=== PATIENT | female | born 1985 | race Caucasian/White ===

== ENCOUNTER 2022-01-08 20:55 | Inpatient (IN) | payer OTHER ==
[2022-01-08] MEDS ORDERED: ACETAMINOPHEN TAB 325 MG TAB PO PRN (21:57)
[2022-01-08] MEDS ORDERED: NALOXONE 0.4 MG/ML 1 ML VIAL IV PRN (21:57)
[2022-01-08] MEDS: DIVALPROEX ER 500 MG TAB.ER.24H PO SCH ×2 (22:23→23:37)
[2022-01-08] MEDS: cloZAPine 100 MG TAB PO SCH ×2 (22:23→23:37)
[2022-01-08] MEDS: SODIUM CHLORIDE 0.9% 1,000 ML IV SCH (22:23)
[2022-01-08 22:48] LABS: Basophils % (A) 0 %; Eosinophils % (A) 1 %; HCT 43.8 % (34.0-46.0); HGB 14.2 gm/dL (11.4-16.0); Lymphocytes # (A) 1.4 k/uL (1.0-4.8); Lymphocytes % (A) 16 %; MCH 32.1 pg (25.0-35.0); MCHC 32.5 g/dL (31.0-37.0); Mean Platelet Volume 7.5; Monocytes # (A) 0.6 k/uL (0-1.0); Monocytes % (A) 7 %; Neutrophils # (A) 6.8 k/uL (1.3-7.7); Neutrophils % (A) 75 %; Platelet Count 231 k/uL (150-450); RBC 4.43 m/uL (3.80-5.40); RDW 11.5 % (11.5-15.5)
[2022-01-08 22:58] LABS: ALT 17 U/L (4-34); AST 15 U/L (14-36); African American GFR (CKD) >90 (>60 ml/min/1.73 sqM); Albumin 4.1 g/dL (3.5-5.0); Alkaline Phosphatase 65 U/L (38-126); Anion Gap 7 mmol/L; Blood Urea Nitrogen 11 mg/dL (7-17); Calcium 8.9 mg/dL (8.4-10.2); Carbon Dioxide 27 mmol/L (22-30); Chloride 106 mmol/L (98-107); Glucose 117 mg/dL (74-99); Magnesium 2.2 mg/dL (1.6-2.3); Non-African American GFR(CKD) >90 (>60 ml/min/1.73 sqM); Potassium 4.4 mmol/L (3.5-5.1); Sodium 140 mmol/L (137-145); Total Bilirubin 0.3 mg/dL (0.2-1.3); Total Protein 6.8 g/dL (6.3-8.2)
[2022-01-08] MEDS: LORazepam 2 MG/ML INJ IV PRN (23:50)
[2022-01-09] MEDS ORDERED: chlorproMAZINE 25 MG TAB PO PRN (01:47)
[2022-01-09] MEDS: chlorproMAZINE 25 MG/ML 2 ML AMP IM PRN ×2 (02:03→08:42)
--- NOTE | 2022-01-09 02:58 | P.HPIM ---
History of Present Illness H&P Date: 01/08/22 Chief Complaint: Seizure 36-year-old female with no significant past medical history Patient presented to the hospital about 3 weeks ago has been admitted to the mental health unit for bizarre behavior and acute psychosis. Patient unable to provide any meaningful history she has very short attention span she would make eye contact and answers one question and then starts hallucinating and talked about random subjects other times she would not answer and just stares in the blank. History was obtained by reviewing medical records It was assumed that the patient is under a lot of social stress due to family commitments. 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 During her stay at the mental health unit looks like he was very difficult to get her symptoms under control she continued to have bizarre behavior with episodes of acute psychosis despite attempting different mood stabilizers and other psych medications with gradually increasing dosing under psychiatrist's supervision with not much improvement in her symptoms. About a week ago patient sustained a fall on the mental health unit where apparently she had the syncopal episodes after she got up and was asking for some medications she fell and hurt her head resulted in an open wound in the back of her head at that time she was attended to the wound was sutured CAT scan of the head showed no acute pathology. Patient initial blood work showed negative drug screen and overall blood work was unremarkable, syphilis screening, and a all negative Today suddenly she starts having seizure was witnessed by staff members and the mental health unit after which her mentation was foggy and due to her prolonged stay at the mental health unit without improvements unable to control her bizarre behavior on top of that now having an episode of seizure patient was sent to the medical unit for close monitoring and further workup to rule out any underlying pathology Another stat CAT scan of the head was performed showed no acute pathology patient currently is back to her baseline mental status Review of Systems ROS unobtainable: due to mental status Past Medical History Past Medical History: No Reported History History of Any Multi-Drug Resistant Organisms: None Reported Past Surgical History: Section Additional Psychological History / Comment(s): PT ADMITTED FROM MENTAL HEALTH WAS THERE FOR PSYCHOTIC EPISODES Smoking Status: Current every day smoker Past Alcohol Use History: None Reported Past Drug Use History: None Reported - Past Family History Mother History Unknown: Yes Medications and Allergies Home Medications Medication Instructions Recorded Confirmed Type Divalproex [Depakote] 500 mg PO HS 30 Days tablet 12/22/21 01/08/22 Rx QUEtiapine [SEROquel] 300 mg PO HS 30 Days tab 12/22/21 01/08/22 Rx Allergies Allergy/AdvReac Type Severity Reaction Status Date / Time amoxicillin Allergy Rash/Hives Verified 12/18/21 18:43 erythromycin base Allergy Rash/Hives Verified 12/18/21 18:43 Penicillins Allergy Rash/Hives Verified 12/18/21 18:43 raspberry Allergy Swelling Verified 12/23/21 12:58 red dye Allergy Swelling Verified 12/23/21 12:58 strawberry Allergy Swelling Verified 12/23/21 12:58 Physical Exam Vitals: Vital Signs Temp Resp BP Pulse Ox 01/09/22 00:00 98.1 F 14 91/61 93 L Intake and Output 01/08/22 01/08/22 01/09/22 14:59 22:59 06:59 Other: # Voids 1 Weight 91 kg Constitutional: No acute distress, cooperative, bizarre behavior Eyes: Anicteric sclerae, moist conjunctiva, Pupils equal round reactive to light ENMT: NC/occipital wound looks dry and intact Oropharynx clear, no erythema, or exudates Neck: Supple, FROM, no masses, or JVD No carotid bruits No thyromegaly Lungs: Clear to auscultation Clear to percussion Normal respiratory effort, no accessory muscle use Cardiovascular: Heart regular in rate and rhythm, No murmurs, gallops, or rubs No peripheral edema Abdominal: Soft Nontender, no guarding, rebound or rigidity Abdomen moving with respiration Normoactive bowel sounds No hepatomegaly, No splenomegaly No palpable mass No abdominal wall hernia noted Skin: Normal temperature, tone, texture, turgor No induration No subcutaneous nodules No rash, lesions No ulcers Extremities: No digital cyanosis No clubbing Pedal pulses intact and symmetrical Radial pulses intact and symmetrical No calf tenderness Psychiatric: Alert and oriented to person, place Bizarre behavior Neuro Muscles Strength 5/5 in all 4 extremities Sensation to light touch grossly present throughout Cranial nerves II-XII grossly intact No focal sensory deficits Lymphatics: no palpable cervical or supraclavicular , or inguinal lymph nodes Results CBC & Chem 7: 01/08/22 22:29 01/08/22 22:29 Labs: Abnormal Lab Results - Last 24 Hours (Table) 01/08/22 Range/Units 22:29 Glucose 117 H (74-99) mg/dL Thrombosis Risk Factor Assmnt - Choose All That Apply Each Factor Represents 1 point: Obesity (BMI >25) Other Risk Factors: No Other congenital or acquired thrombophilia - If yes, enter type in comment: No Thrombosis Risk Factor Assessment Total Risk Factor Score: 1 Thrombosis Risk Factor Assessment Level: Low Risk Assessment and Plan Assessment: Seizure episode Acute psychosis and bizarre behavior Acute metabolic encephalopathy Supportive care Computed tomography scan of the brain no acute pathology Check EEG Seizure precautions Fall precautions One-on-one sitter for safety Psych evaluation Neuro evaluation Follow-up electrolytes repeat blood work in the morning ABG showed metabolic acidosis IV fluid hydration with normal saline Resume psych medication stabilizers When necessary chlorpromazine for acute psychosis DVT prophylaxis Lovenox Full code Anticipated length of stay less than 2 midnights
[2022-01-09] MEDS: LORazepam 2 MG/ML INJ IV PRN (07:54)
[2022-01-09] MEDS: ENOXAPARIN 40 MG/0.4 ML SYRINGE SQ SCH (07:54)
[2022-01-09] MEDS ORDERED: chlorproMAZINE 25 MG/ML 2 ML AMP IM STA (10:17)
[2022-01-09] MEDS ORDERED: LORazepam 2 MG/ML INJ IV PRN (10:18)
[2022-01-09] MEDS ORDERED: chlorproMAZINE 25 MG/ML 2 ML AMP IM ONE ×2 (12:30→18:00)
--- NOTE | 2022-01-09 14:05 | P.CN ---
Psychiatric Consult - . Consult date: 01/09/22 Consult:: 01/09/22 14:04 IDENTIFYING DATA: This patient is a single, employed, 36-year-old female who initially presented to the psychiatric unit with acute psychosis and is now court ordered for mental health treatment. The patient experienced a seizure on the psychiatric unit and was therefore transferred onto the medical floor. HISTORY OF PRESENT ILLNESS: The patient presented to the hospital initially on 0 12/19/2021 with new onset psychotic symptoms a few weeks prior to her admission to the hospital. The patient has had no significant psychiatric history or history of drug abuse. Furthermore, the patient had no significant family psychiatric history. The initial diagnosis was acute psychotic episode, likely precipitated by ongoing life stressors. However during the hospitalization, the patient displayed no significant improvement and in fact appeared to have worsening disorganization as the hospitalization progressed. The patient has been trialed on Risperdal and Prolixin however displayed no significant improvement. During the course of the hospitalization, it was found that benzodiazepines appear to have a paradoxical reaction for this patient. She did require restraints and had intermittent episodes of agitation while on the psychiatric floor. The patient displayed significant symptoms of psychosis including gross disorganization, visual hallucinations, auditory hallucinations, and delusional thoughts. Despite all this, the patient was alert and oriented to person, place, and time. On 01/08/2022, staff was called to the patient's room around 8 PM. The patient was found to be hyperventilating and unresponsive. She was not responding to her name or sternal rub. The team was called and a crash cart was brought to the room. The patient began having a seizure and was noted to have significant muscle rigidity. The patient was therefore transferred to the medical floor. Upon evaluation on the medical floor, the patient continues to be grossly disorganized. Present at the patient's bedside are her sister Moriah and her mother Paulina. Collateral information provided by her family revealed no significant history aside from possible use of nitrous oxide at her work place. They continued to confirm that there has been no significant drug history or psychiatric history for this patient. PAST PSYCHIATRIC HISTORY: Patient has no psychiatric history prior to this admission. The patient was not on any psychotropic medications in the past. While on the psychiatric unit, she was trialed with Risperdal and Prolixin however had no improvement. She was also placed on Depakote for mood stabilization. The patient was last placed on Clozaril. Prior to this psychiatric admission, the patient has had no psychiatric hospitalizations. No previous attempts at suicide. PAST MEDICAL HISTORY: Past Medical History: No Reported History History of Any Multi-Drug Resistant Organisms: None Reported Past Surgical History: Section Additional Psychological History / Comment(s): PT ADMITTED FROM MENTAL HEALTH WAS THERE FOR PSYCHOTIC EPISODES Smoking Status: Current every day smoker Past Alcohol Use History: None Reported Past Drug Use History: None Reported ALLERGIES: Amoxicillin, erythromycin, penicillin, red dye, strawberry, raspberry CHEMICAL DEPENDENCY HISTORY: The patient's family reports that the patient would engage in alcohol use and would smoke a pack to 1 pack per day of tobacco. No reported illicit drug use history. The patient did report while admitted on the psychiatric unit that she would occasionally play around with laughing gas at her workplace. FAMILY PSYCHIATRIC/SUBSTANCE USE HISTORY: No reported family psychiatric history. SOCIAL HISTORY: Patient was born and raised in [place], [place]. The patient is single however has been in relationship with her boyfriend Morales for the past 2 years. She has 2 daughters ages 12 and 6 years old. 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 No criminal history of service. MENTAL STATUS EXAM: General Appearance: Currently, the patient appears to be obtunded and disheveled. Behavior: Patient is lying down in bed with elevated psychomotor activity and restless movements. Speech: Patient's speech is nonspontaneous, nonsensical, dysarthric. Mood/Affect: Patient mood cannot be assessed. Affect appears to be somnolent. Suicidality/Homicidality: Unable to assess. Perceptions: Unable to assess. Though content/process: Patient appears to be grossly disorganized. Memory and concentration: Unable to assess at this time. Judgment and insight: Poor Vital Signs Temp 99 F 01/09/22 12:00 Pulse 120 H 01/09/22 12:00 Resp 18 01/09/22 12:00 BP 112/75 01/09/22 12:00 Pulse Ox 94 L 01/09/22 12:00 Intake & Output 01/08/22 01/09/22 01/09/22 18:59 06:59 18:59 Output Total 1100 Balance -1100 Weight 91 kg Output: Urine 1100 Straight 1100 Other: Voiding Method Diaper # Voids 1 Laboratory Results WBC 9.0 k/uL (3.8-10.6) 01/08/22: RBC 4.43 m/uL (3.80-5.40) 01/08/22: Hgb 14.2 gm/dL (11.4-16.0) 01/08/22: Hct 43.8 % (34.0-46.0) 01/08/22: MCV 99.0 fL (80.0-100.0) 01/08/22: MCH 32.1 pg (25.0-35.0) 01/08/22: MCHC 32.5 g/dL (31.0-37.0) 01/08/22: RDW 11.5 % (11.5-15.5) 01/08/22: Plt Count 231 k/uL (150-450) 01/08/22: MPV 7.5 01/08/22: Neutrophils % 75 % 01/08/22: Lymphocytes % 16 % 01/08/22: Monocytes % 7 % 01/08/22: Eosinophils % 1 % 01/08/22: Basophils % 0 % 01/08/22: Neutrophils # 6.8 k/uL (1.3-7.7) 01/08/22: Lymphocytes # 1.4 k/uL (1.0-4.8) 01/08/22: Monocytes # 0.6 k/uL (0-1.0) 01/08/22: Eosinophils # 0.0 k/uL (0-0.7) 01/08/22: Basophils # 0.0 k/uL (0-0.2) 01/08/22: Sodium 140 mmol/L (137-145) 01/08/22: Potassium 4.4 mmol/L (3.5-5.1) 01/08/22: Chloride 106 mmol/L (98-107) 01/08/22: Carbon Dioxide 27 mmol/L (22-30) 01/08/22: Anion Gap 7 mmol/L 01/08/22: BUN 11 mg/dL (7-17) 01/08/22: Creatinine 0.67 mg/dL (0.52-1.04) 01/08/22 22: Est GFR (CKD-EPI)AfAm >90 (>60 ml/min/1.73 sqM) 01/08/22 22: Est GFR (CKD-EPI)NonAf >90 (>60 ml/min/1.73 sqM) 01/08/22 22: Glucose 117 mg/dL (74-99) H 01/08/22: Calcium 8.9 mg/dL (8.4-10.2) 01/08/22: Magnesium 2.2 mg/dL (1.6-2.3) 01/08/22: Total Bilirubin 0.3 mg/dL (0.2-1.3) 01/08/22: AST 15 U/L (14-36) 01/08/22: ALT 17 U/L (4-34) 01/08/22: Alkaline Phosphatase 65 U/L (38-126) 01/08/22: Total Protein 6.8 g/dL (6.3-8.2) 01/08/22: Albumin 4.1 g/dL (3.5-5.0) 01/08/22: IMPRESSIONS: Acute psychosis Acute metabolic encephalopathy Nicotine dependence The patient is displaying worsening disorganization and confusion. This is despite the fact that the patient has had no previous psychiatric history and when started on antipsychotics appears to have had worsening psychotic symptoms. Despite her presentation, the patient has been alert and oriented while on the psychiatric unit. She did display significant psychotic symptoms of auditory hallucinations, visual hallucinations, delusional thoughts, and disorganization. Given the sudden and worsening onset of symptoms, there is concern for possible underlying issues aside from psychiatric pathology. MOHAMUD, RPR, TSH, B12, folate, Ammonia were WNL. CT did not show signs of acute pathology. EEG was initially negative. PLAN: -Agree with medical recommendations and plan -Agree with neurology work up -Continue Depakote 2000 mg by mouth at bedtime. -Continue clozapine 100 mg by mouth at bedtime. -Thorazine when necessary for agitation -Psychiatry will continue to follow at this time. 01/09/22 14:05
--- NOTE | 2022-01-09 14:19 | MR ---
EXAMINATION TYPE: MR brain wo con DATE OF EXAM: 01/09/2022 COMPARISON: CT brain from yesterday and last several days. HISTORY: new onset seizures TECHNIQUE: Multiplanar, multisequence imaging of the brain and brainstem is performed without IV cont rast. FINDINGS: Exam is suboptimal due to patient motion, several repeat sequences were performed. Diffusion weighted images demonstrate no evidence of a recent infarct or other diffusion abnormality. There is no extraaxial fluid collection or significant white matter signal abnormality. The ventricu lar system and cisternal spaces are normal in size and appearance. The brain volume is age appropria te. No definitive areas of suspicious increased T2 or FLAIR signal. Midline structures demonstrate normal morphology. The craniocervical junction appears within normal limits. Normal vascular flow voids are present. The visualized sinuses are clear and the globes are i ntact. IMPRESSION: Suboptimal study. No suspicious abnormality clearly seen.
--- NOTE | 2022-01-09 17:56 | P.PN ---
Subjective Progress Note Date: 01/09/22 (delayed charting seen at 1030) Principal diagnosis: seizure Patient is a 36-year-old female with no known past medical history who has been on the mental health unit for bizarre behavior and acute psychosis. She had a prolonged stay in the mental health unit as her psychosis has been very difficult to stabilize. She did have a fall in the mental health unit where she possibly had a syncopal episode after getting some medications. Neurology was consulted on the mental health unit and patient did have an EEG completed on which showed possible medication side effect. On 01/08 was witnessed having a seizure on the mental health unit. She was therefore transitioned to the medical unit. CT of the head was performed which showed no acute pathology. Patient seen and examined at bedside. She is laying in the prone prop position continues to reiterate she is waiting for a doctor, but I am not that doctor. She then does not answer other questions and she is not redirectable. She had just received some Ativan which seemed to make her paradoxically more agitated and then a dose of IM Thorazine which seemed to help. General: non toxic, no distress, appears at stated age Derm: warm, dry Head: atraumatic, normocephalic, symmetric Eyes: Myotic pupils, equal round reactive to light EOMI, no lid lag, anicteric sclera Mouth: no lip lesion, mucus membranes moist Cardiovascular: S1S2 reg, no murmur, positive posterior tibial pulse bilateral, Lungs: CTA bilateral, no rhonchi, no rales , no accessory muscle use Abdominal: Patient will not turn over for me to examine her abdomen Ext: no gross muscle atrophy, no edema, no contractures Neuro: Moving all 4 extremities independently with no acute deficits noted Psych: Awake and alert, oriented to self. Appears anxious and responding to internal stimuli Assessment/plan: Acute seizure Altered mentation-acute psychosis versus encephalopathy -Neurology and psychiatry recs -MRI brain, seizure precautions, continue with depakote -Continue with occupational health and safety officer -Urine drug screen was negative on admission -MOHAMUD negative, Covid test negative -Folate, homocystine, TSH, vitamin B12 all within normal limits Non-anion gap metabolic acidosis -Repeat BMP in a.m. -Anticipate this was due to seizure DVT prophylaxis: Heparin Discussed with:patient, psych Anticipated discharge: undetermined Anticipated discharge place: undetermined A total of 35 minutes was spent on the care of this complex patient more than 50% of the time was spent in counseling and care coordination. Active Medications Acetaminophen (Acetaminophen Tab 325 Mg Tab) 650 mg PO Q6HR PRN PRN Reason: Mild Pain or Fever > 100.5 Chlorpromazine HCl (Chlorpromazine 25 Mg Tab) 50 mg PO QID PRN PRN Reason: Agitation or Acute Psychosis Chlorpromazine HCl (Chlorpromazine 25 Mg/Ml 2 Ml Amp) 25 mg IM Q6HR PRN PRN Reason: Agitation or Acute Psychosis Last Admin: 01/09/22 08:42 Dose: 25 mg Documented by: Chlorpromazine HCl (Chlorpromazine 25 Mg/Ml 2 Ml Amp) 50 mg IM ONCE ONE Stop: 01/09/22 18:01 Last Admin: 01/09/22 16:41 Dose: 50 mg Documented by: Clozapine (Clozapine 100 Mg Tab) 100 mg PO [facility] Stop: 01/14/22 23:00 Last Admin: 01/08/22 23:37 Dose: Not Given Documented by: Diphenhydramine HCl (Diphenhydramine 50 Mg/Ml 1 Ml Vial) 25 mg IVP Q6HR PRN PRN Reason: Agitation Diphenhydramine HCl (Diphenhydramine 50 Mg/Ml 1 Ml Vial) 50 mg IM ONCE ONE Stop: 01/09/22 18:01 Last Admin: 01/09/22 16:41 Dose: 50 mg Documented by: Divalproex Sodium (Divalproex Er 500 Mg Tab.Er.24h) 2,000 mg PO [facility] Last Admin: 01/08/22 23:37 Dose: Not Given Documented by: Enoxaparin Sodium (Enoxaparin 40 Mg/0.4 Ml Syringe) 40 mg SQ DAILY [facility] Last Admin: 01/09/22 07:54 Dose: 40 mg Documented by: Sodium Chloride (Saline 0.9%) 1,000 mls @ 150 mls/hr IV .Q6H40M [facility] Last Admin: 01/08/22 22:23 Dose: 150 mls/hr Documented by: Lorazepam (Lorazepam 2 Mg/Ml Inj) 0.5 mg IV Q6HR PRN PRN Reason: Seizures Naloxone HCl (Naloxone 0.4 Mg/Ml 1 Ml Vial) 0.2 mg IV Q2M PRN PRN Reason: Opioid Reversal Objective - Vital Signs Vital signs: Vital Signs Temp 98.9 F 01/09/22 16:00 Pulse 100 01/09/22 16:00 Resp 18 01/09/22 16:00 BP 137/86 01/09/22 16:00 Pulse Ox 96 01/09/22 16:00 Intake & Output 01/08/22 01/09/22 01/09/22 18:59 06:59 18:59 Output Total 1100 600 Balance -1100 -600 Weight 91 kg Output: Urine 1100 600 Straight 1100 Other: Voiding Method Diaper Indwelling Catheter # Voids 1 2 - Labs CBC & Chem 7: 01/08/22 22:29 01/08/22 22:29 Labs: Abnormal Lab Results - Last 24 Hours (Table) 01/08/22 Range/Units 22:29 Glucose 117 H (74-99) mg/dL
[2022-01-09] MEDS ORDERED: diphenhydrAMINE 50 MG/ML 1 ML VIAL IM ONE (18:00)
[2022-01-09] MEDS: SODIUM CHLORIDE 0.9% 1,000 ML IV SCH ×4 (18:02→23:20)
[2022-01-09] MEDS: DIVALPROEX ER 500 MG TAB.ER.24H PO SCH (20:32)
[2022-01-09] MEDS: cloZAPine 100 MG TAB PO SCH (20:32)
--- NOTE | 2022-01-09 20:45 | EEG ---
ELECTROENCEPHALOGRAM REPORT DATE OF SERVICE: 01/09/2022 PREAMBLE: This is a 36-year-old female with altered mental status. She had a seizure versus syncope. EEG FINDINGS: This is a 21-channel digital EEG recorded with video competent, utilizing 10/20 international system with referential and bipolar montages. The recording consists of somewhat attenuated, low voltage, slow waves, with superimposed significant fast frequency beta activity seen in bihemispheric region. Background does not seem to be reactive to any eye opening or closing. Photic driving response was not seen. Frequent myogenic activity was seen. No focal or generalized epileptiform activity was seen. Different stages of sleep were not seen. IMPRESSION: This is an abnormal EEG due to low amplitude background with the presence of excessive amount of low-voltage fast frequency beta activity. This is suggestive of generalized cerebral dysfunction as can be seen with encephalopathy or related to medication effect. No epileptiform activity was seen. MMODL / IJN: [id number] / [facility]
[2022-01-09] MEDS: diphenhydrAMINE 50 MG/ML 1 ML VIAL IVP PRN (21:23)
[2022-01-10] MEDS: SODIUM CHLORIDE 0.9% 1,000 ML IV SCH ×3 (06:18→21:29)
[2022-01-10] MEDS: diphenhydrAMINE 50 MG/ML 1 ML VIAL IVP PRN ×2 (06:18→14:24)
[2022-01-10] MEDS: ENOXAPARIN 40 MG/0.4 ML SYRINGE SQ SCH (07:56)
[2022-01-10 08:52] LABS: ALT 17 U/L (4-34); AST 30 U/L (14-36); African American GFR (CKD) >90 (>60 ml/min/1.73 sqM); Albumin 3.7 g/dL (3.5-5.0); Alkaline Phosphatase 69 U/L (38-126); Anion Gap 6 mmol/L; Blood Urea Nitrogen 7 mg/dL (7-17); Calcium 8.4 mg/dL (8.4-10.2); Carbon Dioxide 26 mmol/L (22-30); Chloride 111 mmol/L (98-107); Glucose 80 mg/dL (74-99); Non-African American GFR(CKD) >90 (>60 ml/min/1.73 sqM); Phosphorus 3.5 mg/dL (2.5-4.5); Potassium 3.9 mmol/L (3.5-5.1); Sodium 143 mmol/L (137-145); Total Bilirubin 0.4 mg/dL (0.2-1.3); Total Protein 6.3 g/dL (6.3-8.2)
[2022-01-10 08:59] LABS: Basophils % (A) 0 %; Eosinophils # (A) 0.1 k/uL (0-0.7); Eosinophils % (A) 1 %; HGB 13.7 gm/dL (11.4-16.0); Lymphocytes # (A) 1.4 k/uL (1.0-4.8); Lymphocytes % (A) 16 %; MCH 31.9 pg (25.0-35.0); MCHC 31.9 g/dL (31.0-37.0); MCV 100.2 fL (80.0-100.0); Mean Platelet Volume 7.4; Monocytes # (A) 0.6 k/uL (0-1.0); Monocytes % (A) 7 %; Neutrophils # (A) 6.5 k/uL (1.3-7.7); Neutrophils % (A) 75 %; Platelet Count 207 k/uL (150-450); RBC 4.29 m/uL (3.80-5.40); RDW 11.5 % (11.5-15.5); WBC 8.7 k/uL (3.8-10.6)
--- NOTE | 2022-01-10 10:30 | P.CNNES ---
History of Present Illness Consult date: 01/09/22 Requesting physician: Lien Gu Reason for Consult: Seizure History of Present Illness: Patient is a 36-year-old female, known to me from recent admission to the hospital at [facility]. Patient was seen for altered mental status. Please refer to my note from 01/07/2022. Patient had an EEG performed, which showed no epileptiform activity. Patient was just seen yesterday, and it was felt patient has acute psychosis, perhaps catatonia. Patient later had a seizure-like episode as depicted in the nursing note as below. As per the description from note of the nursing staff at [facility]: "This staff was called to the patients room around 1999pm, she was found to be hyperventilating and unresponsive, she is not responding to name, or sternal rub, Instructed staff to call A-team, V/S were taken initial set was 128/73 120- 150 on the machine. pulse ox was 97 percent on room air. She was sat up in the bed with a wedge, crash cart was brought in the room, she continues to hyperventilate and then starts having a seizure, shaking with muscle rigidity, A team arrives, o2 was placed on the patient, Cbg done and was 126, pt. continued to be unresponsive they started and IV line in the right forearm, She was given Narcan was given by A team nurses, see A team documentation.V/S 162/112 pulse 84 at 2015pm, She continues to be unresponsive Dr. Gu pt breathing has stabalized, she is more responsive, they made decision [facility]. V/S 143/87 pulse [address] Rosa was notified and order recieved to transfer to medical floor. Pt is being transferred to [facility], Report called to [facility] on [facility]. Also notified pt's boyfriend Morales of the transfer a release has been filled out for him." Patient's sister and their mother was present today, who provided with additional piece of history. It appears patient has been under a lot of stress lately. About 2 or 3 months ago, patient's daughters were checked out by CPS, and the investigation however turned out fine. There was another incident about 2 weeks ago, when her daughter ran after a dog, fell and there was no one to help her. Patient's older daughter has ADD. Patient gets stressed and worries a lot. Patient is a single mother, has 2 daughters. Patient's boyfriend is an alcoholic. Apparently patient has been drinking with her boyfriend a lot more than usual. About 2 weeks prior to arrival to the hospital, patient has been acting with odd behavior with some mental status change. Patient's sister mentions she herself is going through a divorce, but patient's concerns have been "out of ordinary". About few days prior to admission, patient called her sister asking "Are you ?" "Did they kill you?". She asked "Do they have a gun?". Patient's family have noticed that her eyes looks empty. Patient's family mentioned that she had history of seizure at age 15-16. She had another one in 2005. She was treated with seizure medication for couple years but then stopped taking it. She has been seizure free since then. Review of Systems Patient admits to having no headache. ROS unobtainable: due to mental status Past Medical History Past Medical History: No Reported History History of Any Multi-Drug Resistant Organisms: None Reported Past Surgical History: Section Additional Psychological History / Comment(s): PT ADMITTED FROM MENTAL HEALTH WAS THERE FOR PSYCHOTIC EPISODES Smoking Status: Current every day smoker Past Alcohol Use History: None Reported Past Drug Use History: None Reported - Past Family History Mother History Unknown: Yes Medications and Allergies Home Medications Medication Instructions Recorded Confirmed Type Divalproex [Depakote] 500 mg PO HS 30 Days tablet 12/22/21 01/08/22 Rx QUEtiapine [SEROquel] 300 mg PO HS 30 Days tab 12/22/21 01/08/22 Rx Allergies Allergy/AdvReac Type Severity Reaction Status Date / Time amoxicillin Allergy Rash/Hives Verified 12/18/21 18:43 erythromycin base Allergy Rash/Hives Verified 12/18/21 18:43 Penicillins Allergy Rash/Hives Verified 12/18/21 18:43 raspberry Allergy Swelling Verified 12/23/21 12:58 red dye Allergy Swelling Verified 12/23/21 12:58 strawberry Allergy Swelling Verified 12/23/21 12:58 Physical Examination - Vital Signs Vital Signs: Vital Signs Temp Pulse Resp BP Pulse Ox 01/09/22 07:57 98.9 F 101 H 18 115/79 97 01/09/22 04:00 98.7 F 102 H 18 103/62 94 L 01/09/22 00:00 98.1 F 14 91/61 93 L Intake and Output 01/08/22 01/09/22 01/09/22 22:59 06:59 14:59 Output Total 1100 Balance -1100 Output: Urine 1100 Straight 1100 Other: Voiding Method Diaper # Voids 1 Weight 91 kg Patient is a middle aged female, who appears obviously psychotic, also possibly some encephalopathic. Patient is groggy, keeps her eyes closed. She is mumbling, unintelligible speech. Appears to have some word salad. Attention, concentration is significantly limited and fund of knowledge cannot be assessed due to mental status. When I asked about the current president, patient said something about "school". Patient states is the month is the eighth. And the year is "1999". On cranial examination, pupils are equal, round and reacting to light, visual mondragon could not be tested. Her extraocular muscles are intact. No nystagmus in the primary gaze. Face is symmetric, tongue protrudes to the midline. Lower cranial nerves could not be tested due to mental status On muscle strength testing, her associate pathologist appears normal, biceps triceps and deltoid are normal. She moves her both legs equally. No pronator drift. Deep tendon reflexes are 1+ in the upper limbs, 2+ at the knees, 2 ankles and plantars downgoing bilaterally. No clonus. Sensory to touch could not be tested. She does move arms and legs equally. Cerebellar function cannot be tested. Tone and bulk of muscles normal. Gait not checked. On general examination, there is no carotid bruit or murmur, S1-S2 audible. Abdomen is soft nontender, no organomegaly, bowel sounds present . Chest is c lear to auscultation . Peripheral pulses are present. No edema. Results - Laboratory Findings CBC and BMP: 01/10/22 08:20 01/10/22 08:20 Abnormal Lab Findings: Abnormal Labs 01/08/22 22:29 Glucose 117 H Assessment and Plan Assessment: * Altered mental status, probably due to acute psychosis. Rule out encephalitis. * Recent syncopal spell (from hyperventilation) versus seizure. * Reported history of seizure disorder, in remission since 2005, not on any antiepileptic medication. Plan: * Repeat EEG was performed today. It revealed low amplitude background with presence of excessive amount of low voltage fast frequency beta activity. This is suggestive of generalized cerebral dysfunction as can be seen with encephalopathy or related to medication effect. No epileptiform activity was seen. * MRI of the brain without contrast was suboptimal study. No suspicious abnormality clearly seen. I personally reviewed MRI of the brain and agree with the finding. No abnormality noted in the hippocampus. * Patient had normal TSH, ammonia, B12 409, methylmalonic acid 0.21, folate 12.8. Homocystine 6.51. MOHAMUD, RPR negative. * We will perform lumbar puncture to rule out encephalitis. Anesthesia consulted. * Patient has remote history of seizure. She has two EEGs performed recently, none of them showed any epileptiform activity. Patient currently on Depakote 2000 mg at bedtime, which will control seizures. * Psychiatry also on board. * Check creatine kinase * Neurology will follow. Discussed with patient's family in detail. Thank you for the consult.
--- NOTE | 2022-01-10 18:16 | P.PN ---
Subjective Progress Note Date: 01/10/22 (delayed charting seen at 0955) Principal diagnosis: seizure Patient is a 36-year-old female with no known past medical history who has been on the mental health unit for bizarre behavior and acute psychosis. She had a prolonged stay in the mental health unit as her psychosis has been very difficult to stabilize. She did have a fall in the mental health unit where she possibly had a syncopal episode after getting some medications. Neurology was consulted on the mental health unit and patient did have an EEG completed on which showed possible medication side effect. On 01/08 was witnessed having a seizure on the mental health unit. She was therefore transitioned to the medical unit. CT of the head was performed which showed no acute pathology. MRI without significant abnormality. EEG without epileptiform activity. Patient seen and examined at bedside. She is lethargic and opens eyes to sternal rub but does not answer questions or follow commands. Per nursing has been lethargic now but did require benadryl for agitation overnight. General: non toxic, restless, appears at stated age Derm: warm, diaphoretic Head: atraumatic, normocephalic, symmetric Eyes: Myotic pupils, equal round reactive to light EOMI, no lid lag, anicteric sclera Mouth: no lip lesion, mucus membranes moist Cardiovascular: S1S2 tachycardiac, no murmur, positive posterior tibial pulse bilateral, Lungs: CTA bilateral, no rhonchi, no rales , no accessory muscle use Abdominal: sort, NTTP, no organomegally appreciated Ext: no gross muscle atrophy, no edema, no contractures Neuro: Moving all 4 extremities independently with no acute deficits noted, in rolling of b/l LE Psych: lethargic but awake to sternal rub, does not answer questions Assessment/plan: Acute seizure Altered mentation-acute psychosis versus encephalopathy -Neurology and psychiatry recs anesthesia consulted for LP -MRI brain without acute pathology, seizure precautions, continue with depakote -Continue with mines safety engineer -Urine drug screen was negative on admission -MOHAMUD negative, Covid test negative, VDRL negative -Folate, homocystine, TSH, vitamin B12 all within normal limits Non-anion gap metabolic acidosis -Repeat BMP in a.m. -Anticipate this was due to seizure DVT prophylaxis: Heparin Discussed with:patient, psych Anticipated discharge: undetermined Anticipated discharge place: undetermined A total of 35 minutes was spent on the care of this complex patient more than 50% of the time was spent in counseling and care coordination. Active Medications Generic Name Dose Route Start Last Admin Trade Name Freq PRN Reason Stop Dose Admin Acetaminophen 650 mg 01/08/22 21:57 Acetaminophen Tab 325 Mg Tab PO Q6HR PRN Mild Pain or Fever > 100.5 Chlorpromazine HCl 50 mg 01/09/22 01:47 01/09/22 23:38 Chlorpromazine 25 Mg Tab PO 50 mg QID PRN Administration Agitation or Acute Psychosis Chlorpromazine HCl 25 mg 01/09/22 01:47 01/09/22 08:42 Chlorpromazine 25 Mg/Ml 2 Ml Amp IM 25 mg Q6HR PRN Administration Agitation or Acute Psychosis Clozapine 100 mg 01/08/22 22:00 01/09/22 20:32 Clozapine 100 Mg Tab PO 01/14/22 23:00 100 mg HS SABRINA Administration Diphenhydramine HCl 25 mg 01/09/22 15:24 01/10/22 14:24 Diphenhydramine 50 Mg/Ml 1 Ml Vial IVP 25 mg Q6HR PRN Administration Agitation Divalproex Sodium 2,000 mg 01/08/22 22:00 01/09/22 20:32 Divalproex Er 500 Mg Tab.Er.24h PO 2,000 mg HS SABRINA Administration Enoxaparin Sodium 40 mg 01/09/22 09:00 01/10/22 07:56 Enoxaparin 40 Mg/0.4 Ml Syringe SQ 40 mg DAILY SABRINA Administration Sodium Chloride 1,000 mls @ 150 mls/hr 01/08/22 22:00 01/10/22 12:25 Saline 0.9% IV 150 mls/hr .Q6H40M SABRINA Administration Lorazepam 0.5 mg 01/09/22 10:18 Lorazepam 2 Mg/Ml Inj IV Q6HR PRN Seizures Naloxone HCl 0.2 mg 01/08/22 21:57 Naloxone 0.4 Mg/Ml 1 Ml Vial IV Q2M PRN Opioid Reversal Objective - Vital Signs Vital signs: Vital Signs Temp 98.2 F 01/10/22 15:15 Pulse 119 H 01/10/22 15:15 Resp 22 01/10/22 15:15 BP 117/73 01/10/22 15:15 Pulse Ox 96 01/10/22 15:15 Intake & Output 01/09/22 01/10/22 01/10/22 18:59 06:59 18:59 Intake Total 1800 Output Total 495 078 4910 Balance -600 -900 500 Intake: Intake, IV Titration 1800 Amount Sodium Chloride 0.9% 1, 1800 000 ml @ 150 mls/hr IV . Q6H40M [facility] Rx#:[id number] Output: Urine 702 175 5678 Uretheral (Gavin) 1300 Other: Voiding Method Indwelling Catheter Indwelling Catheter Indwelling Catheter # Voids 2 - Labs CBC & Chem 7: 01/10/22 08:20 01/10/22 08:20 Labs: Abnormal Lab Results - Last 24 Hours (Table) 01/10/22 01/10/22 01/10/22 Range/Units 08:20 08:20 08:20 MCV 100.2 H (80.0-100.0) fL Chloride 111 H (98-107) mmol/L Creatine Kinase 610 H (30-135) U/L
[2022-01-10] MEDS ORDERED: LIDOCAINE 1% INJ 10MG/ML (5 ML VIAL-PF) SQ ONE (20:00)
[2022-01-10] MEDS ORDERED: LIDOCAINE 1% INJ 10MG/ML (10 ML MDV) SQ ONE (20:00)
[2022-01-10] MEDS ORDERED: LIDOCAINE 1% INJ 10MG/ML (20 ML MDV) SQ ONE (20:00)
--- NOTE | 2022-01-10 20:07 | P.PCN ---
Date of Procedure: 01/10/22 Procedure(s) Performed: Preoperative diagnosis: Altered mental status Post operative diagnoses: Altered mental status Procedure= lumbar puncture Anesthesia local infiltration with lidocaine 1% 3 mL. Condition: stable Complication: none. Description of the procedure procedure risk and benefits discussed with the patient's mother , consent signed. Patient placed in sitting position , back prepped with chlorhexidine 3 times been local infiltration of the skin and subcutaneous tissue with lidocaine 1% 2 mL for skin and subcu interstitial frustrations at L4 5 levels then 22-gauge Quincke-type needle advanced slowly at L4- 5 interlaminar space there was positive cerebrospinal fluid which was clear, no heme, no paresthesia ,total of 9 ML of clear cerebrospinal fluid collected in 4 different tubes 2-2-1/2 mL in each, then the needle removed and a Band-Aid applied and patient tolerated the procedure well without any complications.
[2022-01-10 20:48] LABS: Glucose,CSF 41 mg/dL (40-70); Total Protein,CSF 56 mg/dL (12-60)
[2022-01-10 21:18] LABS: ALT 16 U/L (4-34); AST 32 U/L (14-36); African American GFR (CKD) >90 (>60 ml/min/1.73 sqM); Albumin 3.6 g/dL (3.5-5.0); Alkaline Phosphatase 70 U/L (38-126); Anion Gap 8 mmol/L; Blood Urea Nitrogen 10 mg/dL (7-17); Calcium 8.4 mg/dL (8.4-10.2); Carbon Dioxide 22 mmol/L (22-30); Chloride 110 mmol/L (98-107); Glucose 57 mg/dL (74-99); Non-African American GFR(CKD) >90 (>60 ml/min/1.73 sqM); Potassium 4.4 mmol/L (3.5-5.1); Sodium 140 mmol/L (137-145); Total Bilirubin 0.6 mg/dL (0.2-1.3); Total Protein 6.4 g/dL (6.3-8.2)
[2022-01-10] MEDS: DIVALPROEX ER 500 MG TAB.ER.24H PO SCH ×3 (21:30→22:24)
[2022-01-10] MEDS: cloZAPine 100 MG TAB PO SCH (21:30)
[2022-01-10 21:53] LABS: Appearance,CSF Clear; CSF Tube Number 4; Nucleated Cells, CSF 0 u/L (0-5); Red Blood Cell,CSF 0 u/L (0-10)
[2022-01-10] MEDS: VALPROATE SODIUM 750 MG in SODIUM CHLORIDE 0.9% 50 ML IVPB SCH (22:34)
[2022-01-11] MEDS: diphenhydrAMINE 50 MG/ML 1 ML VIAL IVP PRN ×3 (02:31→22:01)
[2022-01-11] MEDS: SODIUM CHLORIDE 0.9% 1,000 ML IV SCH ×4 (05:40→22:05)
[2022-01-11] MEDS: VALPROATE SODIUM 750 MG in SODIUM CHLORIDE 0.9% 50 ML IVPB SCH ×2 (07:25→21:47)
[2022-01-11] MEDS: ENOXAPARIN 40 MG/0.4 ML SYRINGE SQ SCH (07:47)
[2022-01-11 07:48] LABS: Glucose,Whole Blood 81 mg/dL (75-99)
[2022-01-11 09:53] LABS: Basophils % (A) 0 %; Eosinophils % (A) 0 %; HCT 43.2 % (34.0-46.0); HGB 13.6 gm/dL (11.4-16.0); Lymphocytes # (A) 1.7 k/uL (1.0-4.8); Lymphocytes % (A) 19 %; MCH 31.6 pg (25.0-35.0); MCHC 31.4 g/dL (31.0-37.0); MCV 100.5 fL (80.0-100.0); Mean Platelet Volume 7.7; Monocytes # (A) 0.7 k/uL (0-1.0); Monocytes % (A) 8 %; Neutrophils # (A) 6.2 k/uL (1.3-7.7); Neutrophils % (A) 71 %; Platelet Count 198 k/uL (150-450); RDW 11.7 % (11.5-15.5); WBC 8.8 k/uL (3.8-10.6)
[2022-01-11 10:13] LABS: ALT 15 U/L (4-34); AST 29 U/L (14-36); African American GFR (CKD) >90 (>60 ml/min/1.73 sqM); Albumin 3.6 g/dL (3.5-5.0); Alkaline Phosphatase 71 U/L (38-126); Anion Gap 9 mmol/L; Blood Urea Nitrogen 10 mg/dL (7-17); Calcium 8.5 mg/dL (8.4-10.2); Carbon Dioxide 25 mmol/L (22-30); Chloride 106 mmol/L (98-107); Creatine Kinase 430 U/L (30-135); Glucose 58 mg/dL (74-99); Magnesium 1.9 mg/dL (1.6-2.3); Non-African American GFR(CKD) >90 (>60 ml/min/1.73 sqM); Potassium 4.3 mmol/L (3.5-5.1); Sodium 140 mmol/L (137-145); Total Bilirubin 0.6 mg/dL (0.2-1.3); Total Protein 6.3 g/dL (6.3-8.2)
--- NOTE | 2022-01-11 11:26 | P.PN ---
Subjective Progress Note Date: 01/10/22 Patient was seen for a follow-up. Patient continues to be obtaining obviously psychotic. Sometimes she is slightly more awake, answers appropriately, the time she just starts snoring. At that time patient would not respond to deep painful stimuli involving the nailbed pressure on her hand or foot. Sitter was present throughout this encounter. Patient's significant other Mr. Salcedo was present today. I asked him about her history of alcoholism. He mentions that she used to drink quite a bit before but has not been drinking too much since he met her about a year ago in summer 2020. Now she drinks about 6-10 beers or 2-3 glasses of vodka between Wednesday and Wednesday. She does not drink during the weekdays. He does not believe that she drinks too much. No history of drugs, does not smoke weed. Objective - Vital Signs Vital signs: Vital Signs Temp 98.2 F 01/10/22 15:15 Pulse 119 H 01/10/22 15:15 Resp 22 01/10/22 15:15 BP 117/73 01/10/22 15:15 Pulse Ox 96 01/10/22 15:15 Intake & Output 01/09/22 01/10/22 01/10/22 18:59 06:59 18:59 Intake Total 1800 Output Total 657 729 4773 Balance -600 -900 500 Intake: Intake, IV Titration 1800 Amount Sodium Chloride 0.9% 1, 1800 000 ml @ 150 mls/hr IV . Q6H40M [facility] Rx#:[id number] Output: Urine 887 243 0303 Uretheral (Gavin) 1300 Other: Voiding Method Indwelling Catheter Indwelling Catheter Indwelling Catheter # Voids 2 - Exam Patient continues to be somewhat encephalopathic, also psychotic. Patient mumbles, frequently with incomprehensible speech. Sometimes she speaks more clearly. Sometimes she would smile out of context. Neck is supple. Pupils are equal, round and reacting. Gaze is midline. Face is symmetric. Tone is equal bilaterally. Her strength appears equal. Reflexes are 2 in the upper limbs, 2 in the lower limbs, very symmetric and plantars downgoing, with no clonus. - Labs CBC & Chem 7: 01/11/22 08:36 01/11/22 08:36 Labs: Abnormal Lab Results - Last 24 Hours (Table) 01/10/22 01/10/22 01/10/22 Range/Units 08:20 08:20 08:20 MCV 100.2 H (80.0-100.0) fL Chloride 111 H (98-107) mmol/L Creatine Kinase 610 H (30-135) U/L Assessment and Plan Assessment: * Altered mental status, probably due to acute psychosis. Rule out encephalitis. * Recent syncopal spell (from hyperventilation) versus seizure. * Reported history of seizure disorder, in remission since 2005, not on any antiepileptic medication. Plan: * Await lumbar puncture. * Repeat EEG 01/09/2022 revealed low amplitude background with presence of excessive amount of low voltage fast frequency beta activity. This is suggestive of generalized cerebral dysfunction as can be seen with encephalopathy or related to medication effect. No epileptiform activity was seen. * MRI of the brain without contrast was suboptimal study. No suspicious abnormality clearly seen. I personally reviewed MRI of the brain and agree with the finding. No abnormality noted in the hippocampus. * Patient had normal TSH, ammonia, B12 409, methylmalonic acid 0.21, folate 12.8. Homocystine 6.51. MOHAMUD, RPR negative. * Patient has remote history of seizure. She has two EEGs performed recently, n one of them showed any epileptiform activity. Patient currently on Depakote 2000 mg at bedtime, which will control seizures. Patient not taking oral pills. We will switch to Depacon 750 mg IV twice a day. * Psychiatry also on board. * Creatine kinase 610. Temperature is normal. No evidence of NMS. * Discussed with primary physician.
--- NOTE | 2022-01-11 15:44 | P.PN ---
Subjective Progress Note Date: 01/11/22 (delayed charting seen at 0915) Principal diagnosis: seizure Patient is a 36-year-old female with no known past medical history who has been on the mental health unit for bizarre behavior and acute psychosis. She had a prolonged stay in the mental health unit as her psychosis has been very difficult to stabilize. She did have a fall in the mental health unit where she possibly had a syncopal episode after getting some medications. Neurology was consulted on the mental health unit and patient did have an EEG completed on which showed possible medication side effect. On 01/08 was witnessed having a seizure on the mental health unit. She was therefore transitioned to the medical unit. CT of the head was performed which showed no acute pathology. MRI without significant abnormality. EEG without epileptiform activity. Patient seen and examined at bedside. She is more awake and alert today. 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 She d enies any pain. General: non toxic, restless, appears at stated age Derm: warm, diaphoretic Head: atraumatic, normocephalic, symmetric Eyes: Myotic pupils, equal round reactive to light EOMI, no lid lag, anicteric sclera Mouth: no lip lesion, mucus membranes moist Cardiovascular: S1S2 tachycardiac, no murmur, positive posterior tibial pulse bilateral, Lungs: CTA bilateral, no rhonchi, no rales , no accessory muscle use Abdominal: sort, NTTP, no organomegally appreciated Ext: no gross muscle atrophy, no edema, no contractures Neuro: Moving all 4 extremities independently with no acute deficits noted Psych: awake, oriented X 3, flat affect Assessment/plan: Acute seizure Altered mentation-acute psychosis versus encephalopathy -Neurology and psychiatry recs -LP negative for meningitis -MRI brain without acute pathology, seizure precautions, continue with depakote -Continue with environmental health safety engineer -Urine drug screen was negative on admission -MOHAMUD negative, Covid test negative, VDRL negative -Folate, homocystine, TSH, vitamin B12 all within normal limits Non-anion gap metabolic acidosis -Repeat BMP in a.m. -Anticipate this was due to seizure DVT prophylaxis: Heparin Discussed with:patient Anticipated discharge: in AM Anticipated discharge place: [facility] A total of 35 minutes was spent on the care of this complex patient more than 50% of the time was spent in counseling and care coordination. Active Medications Generic Name Dose Route Start Last Admin Trade Name Freq PRN Reason Stop Dose Admin Acetaminophen 650 mg 01/08/22 21:57 Acetaminophen Tab 325 Mg Tab PO Q6HR PRN Mild Pain or Fever > 100.5 Chlorpromazine HCl 50 mg 01/09/22 01:47 01/09/22 23:38 Chlorpromazine 25 Mg Tab PO 50 mg QID PRN Administration Agitation or Acute Psychosis Chlorpromazine HCl 25 mg 01/09/22 01:47 01/09/22 08:42 Chlorpromazine 25 Mg/Ml 2 Ml Amp IM 25 mg Q6HR PRN Administration Agitation or Acute Psychosis Clozapine 100 mg 01/08/22 22:00 01/10/22 21:30 Clozapine 100 Mg Tab PO 01/14/22 23:00 100 mg HS SABRINA Administration Diphenhydramine HCl 25 mg 01/09/22 15:24 01/11/22 02:31 Diphenhydramine 50 Mg/Ml 1 Ml Vial IVP 25 mg Q6HR PRN Administration Agitation Enoxaparin Sodium 40 mg 01/09/22 09:00 01/11/22 07:47 Enoxaparin 40 Mg/0.4 Ml Syringe SQ 40 mg DAILY SABRINA Administration Sodium Chloride 1,000 mls @ 150 mls/hr 01/08/22 22:00 01/11/22 07:26 Saline 0.9% IV 150 mls/hr .Q6H40M SABRINA Administration Valproic Acid 750 mg/ Sodium 57.5 mls @ 50 mls/hr 01/10/22 22:30 01/11/22 07:25 Chloride IVPB 50 mls/hr BID SABRINA Administration Lorazepam 0.5 mg 01/09/22 10:18 Lorazepam 2 Mg/Ml Inj IV Q6HR PRN Seizures Naloxone HCl 0.2 mg 01/08/22 21:57 Naloxone 0.4 Mg/Ml 1 Ml Vial IV Q2M PRN Opioid Reversal Objective - Vital Signs Vital signs: Vital Signs Temp 98.9 F 01/11/22 15:14 Pulse 104 H 01/11/22 15:14 Resp 18 01/11/22 15:14 BP 112/76 01/11/22 15:14 Pulse Ox 96 01/11/22 15:14 Intake & Output 01/10/22 01/11/22 01/11/22 18:59 06:59 18:59 Intake Total 2030 1250 1800 Output Total 1300 1600 825 Balance 730 -350 975 Intake: Intake, IV Titration 1800 1250 1800 Amount Sodium Chloride 0.9% 1, 1800 1200 1800 000 ml @ 150 mls/hr IV . Q6H40M [facility] Rx#:[id number] Valproate Sodium 750 mg 50 In Sodium Chloride 0.9% 50 ml @ 50 mls/hr IVPB BID [facility] Rx#:[id number] Oral 230 Output: Urine 1300 1600 825 Uretheral (Gavin) 1300 825 Other: Voiding Method Indwelling Catheter Indwelling Catheter Indwelling Catheter - Labs CBC & Chem 7: 01/11/22 08:36 01/11/22 08:36 Labs: Abnormal Lab Results - Last 24 Hours (Table) 01/10/22 01/11/22 01/11/22 Range/Units 20:32 08:36 08:36 MCV 100.5 H (80.0-100.0) fL Chloride 110 H (98-107) mmol/L Glucose 57 L 58 L (74-99) mg/dL Creatine Kinase 430 H (30-135) U/L Microbiology - Last 24 Hours (Table) 01/10/22 20:10 CSF Gram Stain - Preliminary Cerebral Spinal Fluid CSF Culture - Preliminary
[2022-01-11] MEDS: cloZAPine 100 MG TAB PO SCH (21:46)
[2022-01-12] MEDS ORDERED: diphenhydrAMINE 50 MG/ML 1 ML VIAL ONE (04:00)
[2022-01-12] MEDS: SODIUM CHLORIDE 0.9% 1,000 ML IV SCH ×3 (06:46→21:24)
--- NOTE | 2022-01-12 09:05 | P.PN ---
Subjective Progress Note Date: 01/11/22 Patient was seen for a follow-up. Per nursing report, she is slightly better. She was more oriented, talking more appropriately. Still becomes somnolent. Patient still mumbles, talks gibberish, out of context. Patient for no reason uttered "Moriah will take you to the back". Patient's mother was also present today. Informed her the results of the lumbar puncture, MRI and the EEG. Sitter was present throughout this encounter. Objective - Vital Signs Vital signs: Vital Signs Temp 98.3 F 01/12/22 04:00 Pulse 100 01/12/22 04:00 Resp 18 01/12/22 04:00 BP 112/79 01/12/22 04:00 Pulse Ox 95 01/12/22 04:00 FiO2 Intake & Output 01/11/22 01/12/22 01/12/22 18:59 06:59 18:59 Intake Total 2120 1250 Output Total 1425 1775 Balance 695 -525 Intake: Intake, IV Titration 1800 1250 Amount Sodium Chloride 0.9% 1, 1800 1200 000 ml @ 150 mls/hr IV . Q6H40M [facility] Rx#:[id number] Valproate Sodium 750 mg 50 In Sodium Chloride 0.9% 50 ml @ 50 mls/hr IVPB BID [facility] Rx#:[id number] Oral 320 Output: Urine 1425 1775 Uretheral (Gavin) 1425 Other: Voiding Method Indwelling Catheter Indwelling Catheter - Exam Patient is slightly more awake, speaking more clearly and legibly. However still continues to mumble and sometimes talks completely out of context. At times talks gibberish. Patient's muscle strength is normal. Cranial nerves are normal. Neck is supple. Pupils are equal, round and reacting. Gaze is midline. Face is symmetric. Tone is equal bilaterally. Her strength appears equal. Reflexes are 2 in the upper limbs, 2 in the lower limbs, very symmetric and plantars downgoing, with no clonus. - Labs CBC & Chem 7: 01/11/22 08:36 01/11/22 08:36 Labs: Abnormal Lab Results - Last 24 Hours (Table) 01/11/22 01/11/22 Range/Units 08:36 08:36 MCV 100.5 H (80.0-100.0) fL Glucose 58 L (74-99) mg/dL Creatine Kinase 430 H (30-135) U/L Microbiology - Last 24 Hours (Table) 01/10/22 20:10 CSF Gram Stain - Preliminary Cerebral Spinal Fluid CSF Culture - Preliminary Assessment and Plan Assessment: * Altered mental status, probably due to acute psychosis. No evidence of enc ephalitis. CSF completely normal. * Recent syncopal spell (from hyperventilation) versus seizure. * Reported history of seizure disorder, in remission since 2005, not on any antiepileptic medication. Plan: * Patient underwent lumbar puncture last night. CSF WBC 0, CSF RBC 0, protein 56, glucose 41. Glucose appears to, but probably was also low in the blood at that time. Cultures negative. Overall CSF is normal. * Repeat EEG 01/09/2022 revealed low amplitude background with presence of excessive amount of low voltage fast frequency beta activity. This is suggestive of generalized cerebral dysfunction as can be seen with encephalopathy or related to medication effect. No epileptiform activity was seen. * MRI of the brain without contrast was suboptimal study. No suspicious abnormality clearly seen. I personally reviewed MRI of the brain and agree with the finding. No abnormality noted in the hippocampus. * Patient had normal TSH, ammonia, B12 409, methylmalonic acid 0.21, folate 12.8. Homocystine 6.51. MOHAMUD negative, RPR negative. * Patient has remote history of seizure. She has two EEGs performed recently, none of them showed any epileptiform activity. Patient currently on Depakote 2000 mg at bedtime, which will control seizures. Patient not taking oral pills. We will switch to Depacon 750 mg IV twice a day. * Psychiatry also on board. * Creatine kinase 610. Temperature is normal. No evidence of NMS. * Discussed with primary physician. * All neurological workup is negative. Neurologically cleared for transfer to psychiatry unit. Please call neurology if any concerns. Dr. Ben Parham will be available for neurology service in the morning.
[2022-01-12] MEDS: ENOXAPARIN 40 MG/0.4 ML SYRINGE SQ SCH (09:06)
[2022-01-12] MEDS: VALPROATE SODIUM 750 MG in SODIUM CHLORIDE 0.9% 50 ML IVPB SCH ×2 (09:07→21:23)
[2022-01-12] MEDS: diphenhydrAMINE 50 MG/ML 1 ML VIAL IVP PRN (12:10)
--- NOTE | 2022-01-12 12:46 | P.PN ---
Progress Note - Text Progress Note Date: 01/12/22 Interval History: Patient was seen resting in bed with her mother and sister at bedside. Currently, the patient is very somnolent however does awaken randomly and yells out loud "Where's Moriah!?" and then quickly goes back to bed. The patient continues to have intermittent episodes of agitation and psychosis while admitted on the medical floor. The patient has been adherent with her medications. MRI, EEG, and diagnosing blood workup so far been negative. EEG likely showing effects of medications. NMDAR IgG is still pending and due in 3- 7 days as per lab. Collateral information was obtained by the patient's family. They report the patient does have a significant history of Covid-19 infection. There has been literature of patients with no significant psychiatric symptoms presenting with severe psychotic symptoms after Covid-19 infections. We discussed the plan to transfer for ECT treatment as she has been treatment resistant to medications. We will continue titration of clozaril. Mental Status Exam: General Appearance: Patient appears to be somnolent, difficult to direct, and intimately cooperative. Obese body habitus. Behavior: Appears to presenting with elevated psychomotor activity and appears to be grossly restless. Eye contact is poor. Speech: Spontaneous, loud at times, nonsensical. Mood/Affect: Mood is "tired." Affect is dysphoric, disorganized, and malaised. Suicidality/Homicidality: Unable to assess Perceptions: Unable to assess Though content/process: Patient appears to be grossly disorganized. He endorses delusional thought content. Memory and concentration: Unable to assess today. However when usually assessed, patient is alert and oriented. Judgment and insight: Very poor. Vital Signs Temp 98.1 F 01/12/22 08:00 Pulse 98 01/12/22 11:52 Resp 18 01/12/22 08:00 BP 109/74 01/12/22 08:00 Pulse Ox 96 01/12/22 08:00 FiO2 Intake & Output 01/11/22 01/12/22 01/12/22 18:59 06:59 18:59 Intake Total 2120 1250 Output Total 1425 1775 650 Balance 695 525 -650 Intake: Intake, IV Titration 1800 1250 Amount Sodium Chloride 0.9% 1, 1800 1200 000 ml @ 150 mls/hr IV . Q6H40M [facility] Rx#:[id number] Valproate Sodium 750 mg 50 In Sodium Chloride 0.9% 50 ml @ 50 mls/hr IVPB BID [facility] Rx#:[id number] Oral 320 Output: Urine 1425 1775 650 Uretheral (Gavin) 1425 Other: Voiding Method Indwelling Catheter Indwelling Catheter Indwelling Catheter Assessment Acute psychosis - given the timeline of symptoms, a diagnosis of schizophrenia cannot be made yet. The patient has had no previous history of osiel or bipolar symptoms and despite presenting with intermittent episodes of agitation and has had no previous history of overt manic symptoms lasting a week. 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 Literature has shown that patients with a history of Covid 19 infection have been displaying new onset psychosis that appears to be very severe and treatment resistant. Likely there, the patient would benefit from ECT as antipsychotic medications have not displayed any significant improvement. We will continue to titrate Clozaril in the meantime. Awaiting NMDAR IgG results. Nicotine dependence Plan: -Patient continues to meet criteria for inpatient psychiatric admission for symptom stabilization and safety. The patient is currently court ordered for ps ychiatric treatment. Recommend that the patient is transferred to a facility that can utilize Electroconvulsive therapy. Plan discussed with the patient's high risk case manager. Personal phone number left with high risk case manager to coordinate care with possible facility that will take the patient for ECT. -Medications: Increase Clozaril to 125 mg by mouth at bedtime for psychosis Continue Depakote 750 mg IV twice a day for mood stabilization/seizure -When necessary Thorazine and Benadryl for agitation/aggression. -Psychiatry will continue to follow.
--- NOTE | 2022-01-12 14:12 | P.PN ---
Subjective Progress Note Date: 01/12/22 (delayed charting seen at 1045) Principal diagnosis: seizure Patient is a 36-year-old female with no known past medical history who has been on the mental health unit for bizarre behavior and acute psychosis. She had a prolonged stay in the mental health unit as her psychosis has been very difficult to stabilize. She did have a fall in the mental health unit where she possibly had a syncopal episode after getting some medications. Neurology was consulted on the mental health unit and patient did have an EEG completed on 51 which showed possible medication side effect. On 01/08 was witnessed having a seizure on the mental health unit. She was therefore transitioned to the medical unit. CT of the head was performed which showed no acute pathology. MRI without significant abnormality. EEG without epileptiform activity. Patient seen and examined at bedside. Mother and sister present at bedside. She is currently sedated after receiving Benadryl this morning. She does wake up and phonate though it is difficult to understand what she is saying. Jeremi arently today she became agitated with a nurse aide and thought she was her daughter. General: non toxic, no distress, appears at stated age Derm: warm, diaphoretic Head: atraumatic, normocephalic, symmetric Eyes: Myotic pupils, equal round reactive to light EOMI, no lid lag, anicteric sclera Mouth: no lip lesion, mucus membranes moist Cardiovascular: S1S2 tachycardiac, no murmur, positive posterior tibial pulse bilateral, Lungs: CTA bilateral, no rhonchi, no rales , no accessory muscle use Abdominal: sort, NTTP, no organomegally appreciated Ext: no gross muscle atrophy, no edema, no contractures Neuro: Moving all 4 extremities independently with no acute deficits noted Psych: Somnolent, opens eyes and attempts to verbalize when stimulated verbally or tactilely. She is not answering questions at this time. Assessment/plan: Acute seizure Acute psychosis -Neurology and psychiatry recs -LP negative for meningitis -MRI brain without acute pathology, seizure precautions, continue with depakote, EEG without epileptiform activity -Continue with product safety compliance leader -Urine drug screen was negative on admission -MOHAMUD negative, Covid test negative, VDRL negative -Folate, homocystine, TSH, vitamin B12 all within normal limits - NDMA receptor testing pending Non-anion gap metabolic acidosis, resolved Medically optimized for discharge, no metabolic/neurologic/medical cause found to account for patients current pyschosis. D/W Dr. Cobb who recommends transfer to a MHU that can accommodate ECT--he will work with social work to arrange this transfer DVT prophylaxis: Heparin Discussed with:patient Anticipated discharge: in AM Anticipated discharge place: MHU A total of 35 minutes was spent on the care of this complex patient more than 50% of the time was spent in counseling and care coordination. Active Medications Generic Name Dose Route Start Last Admin Trade Name Freq PRN Reason Stop Dose Admin Acetaminophen 650 mg 01/08/22 21:57 Acetaminophen Tab 325 Mg Tab PO Q6HR PRN Mild Pain or Fever > 100.5 Chlorpromazine HCl 50 mg 01/09/22 01:47 01/09/22 23:38 Chlorpromazine 25 Mg Tab PO 50 mg QID PRN Administration Agitation or Acute Psychosis Chlorpromazine HCl 25 mg 01/09/22 01:47 01/09/22 08:42 Chlorpromazine 25 Mg/Ml 2 Ml Amp IM 25 mg Q6HR PRN Administration Agitation or Acute Psychosis Clozapine 125 mg 01/12/22 21:00 Clozapine 25 Mg Tab PO 01/14/22 23:00 HS S[facility]INA Diphenhydramine HCl 25 mg 01/09/22 15:24 01/12/22 12:10 Diphenhydramine 50 Mg/Ml 1 Ml Vial IVP 25 mg Q6HR PRN Administration Agitation Enoxaparin Sodium 40 mg 01/09/22 09:00 01/12/22 09:06 Enoxaparin 40 Mg/0.4 Ml Syringe SQ 40 mg DAILY S[facility] Administration Sodium Chloride 1,000 mls @ 150 mls/hr 01/08/22 22:00 01/12/22 09:08 Saline 0.9% IV Not Given .Q6H40M [facility] Valproic Acid 750 mg/ Sodium 57.5 mls @ 50 mls/hr 01/10/22 22:30 01/12/22 09:07 Chloride IVPB 50 mls/hr BID S[facility] Administration Lorazepam 0.5 mg 01/09/22 10:18 Lorazepam 2 Mg/Ml Inj IV Q6HR PRN Seizures Naloxone HCl 0.2 mg 01/08/22 21:57 Naloxone 0.4 Mg/Ml 1 Ml Vial IV Q2M PRN Opioid Reversal Objective - Vital Signs Vital signs: Vital Signs Temp 97.9 F 01/12/22 12:00 Pulse 104 H 01/12/22 12:00 Resp 20 01/12/22 12:00 BP 103/68 01/12/22 12:00 Pulse Ox 97 01/12/22 12:00 FiO2 Intake & Output 01/11/22 01/12/22 01/12/22 18:59 06:59 18:59 Intake Total 2120 1250 Output Total 1425 1775 650 Balance 695 -525 -650 Intake: Intake, IV Titration 1800 1250 Amount Sodium Chloride 0.9% 1, 1800 1200 000 ml @ 150 mls/hr IV . Q6H40M [facility] Rx#:[id number] Valproate Sodium 750 mg 50 In Sodium Chloride 0.9% 50 ml @ 50 mls/hr IVPB BID [facility] Rx#:[id number] Oral 320 Output: Urine 1425 1775 650 Uretheral (Gavin) 1425 Other: Voiding Method Indwelling Catheter Indwelling Catheter Indwelling Catheter - Labs CBC & Chem 7: 01/11/22 08:36 01/11/22 08:36 Labs: Microbiology - Last 24 Hours (Table) 01/10/22 20:10 CSF Gram Stain - Preliminary Cerebral Spinal Fluid CSF Culture - Preliminary
[2022-01-12 14:32] VITALS: BMI 34.4
[2022-01-12] MEDS ORDERED: cloZAPine 25 MG TAB PO SCH (21:00)
[2022-01-13] MEDS: SODIUM CHLORIDE 0.9% 1,000 ML IV SCH ×4 (03:01→22:37)
[2022-01-13] MEDS: diphenhydrAMINE 50 MG/ML 1 ML VIAL IVP PRN ×3 (03:01→22:07)
[2022-01-13] MEDS: VALPROATE SODIUM 750 MG in SODIUM CHLORIDE 0.9% 50 ML IVPB SCH ×2 (08:37→22:07)
[2022-01-13] MEDS: ENOXAPARIN 40 MG/0.4 ML SYRINGE SQ SCH (08:38)
[2022-01-13] MEDS: chlorproMAZINE 25 MG/ML 2 ML AMP IM PRN (08:44)
[2022-01-13 12:49] LABS: IgG - CSF 4.4 mg/dL (0.0 - 3.4); IgG Synthesis Rate 5.82 mg/day (0.00 - 3.00)
--- NOTE | 2022-01-13 13:08 | P.PN ---
Progress Note - Text Progress Note Date: 01/13/22 Interval History: Patient was seen resting in bed with her mother and sitter at bedside. Currently the patient is alert and oriented to person, place, and time. She is currently denying any suicidal or homicidal ideation, intention, and/or plan. She reports no auditory or visual hallucinations. She does not mention any overt psychotic symptoms. She has been adherent with her medications with sedation as a side effect. The patient continues to be somewhat disorganized. She has intermittent episodes of agitation and confusion. Mental Status Exam: General Appearance: Patient appears to be somnolent, but directable and cooperative. Obese body habitus. Behavior: Appears to presenting with elevated psychomotor activity and appears to be grossly restless. Eye contact is poor. Speech: Spontaneous, slurred, low in volume. Mood/Affect: Mood is "okay." Affect is somnolent. Suicidality/Homicidality: Denies Perceptions: Denies AH or VH Though content/process: Patient appears to be grossly disorganized. Continues to endorse delusional thought content. Memory and concentration: AAOx4. Judgment and insight: Improving. Assessment Acute psychosis - given the timeline of symptoms, a diagnosis of schizophrenia cannot be made yet. The patient has had no previous history of osiel or bipolar symptoms and despite presenting with intermittent episodes of agitation and has had no previous history of overt manic symptoms lasting a week. 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 Literature has shown that patients with a history of Covid 19 infection have been displaying new onset psychosis that appears to be very severe and treatment resistant. Likely there, the patient would benefit from ECT as antipsychotic medications have not displayed any significant improvement. We will continue to titrate Clozaril in the meantime. Awaiting NMDAR IgG results. Nicotine dependence Plan: -Patient DOES meet criteria for inpatient psychiatric hospitalization. When medically stable, transfer to the psychiatric unit. We will continue to pursue transfer to a facility that can perform ECT. In the interim, she will be admitted psychiatrically for safety and to continue medication management to the best of our ability. -Patient continues to meet criteria for inpatient psychiatric admission for symptom stabilization and safety. The patient is currently court ordered for psychiatric treatment. Recommend that the patient is transferred to a facility that can utilize Electroconvulsive therapy. Plan discussed with the patient's director of casework. Awaiting ECT placement. -Patient has capacity for medical decision making. Electroconvulsive therapy was discussed with the patient including the risks, benefits, and treatment alternatives. Patient is able to acknowledge what is said to her and is agreeable in pursuing ECT treatment. -Medications: Increase Clozaril to 150 mg by mouth at bedtime for psychosis Continue Depakote 750 mg IV twice a day for mood stabilization/seizure - Consider taper if concern for somnolence. -When necessary Thorazine and Benadryl for agitation/aggression. -Psychiatry will continue to follow.
--- NOTE | 2022-01-13 14:03 | P.DS ---
Providers Date of admission: 01/10/22 07:22 Expected date of discharge: 01/13/22 Attending physician: Lien Gu MD Consults: 01/08/22 21:58 Consult Physician Routine Consulting Provider: Yuriy Rosa Consult Reason/Comments: known Do you want consulting provider notified?: Yes 01/08/22 21:59 Consult Physician Routine Consulting Provider: Judith Reeves Consult Reason/Comments: seizure Do you want consulting provider notified?: Yes 01/09/22 12:32 Consult to Anesthesia Stat Consulting Provider: Tanmay Santos Consult Reason/Comments: Lumbar puncture whenever available; AMS, rule out encephalitis 01/10/22 16:05 Consult to Anesthesia Stat Consulting Provider: Anesthesia,Services Consult Reason/Comments: Lumbar puncture, rule out encephalitis Primary care physician: Stated None Hospital Course: Discharge Diagnosis: Acute psychosis Obesity- BMI 34.4 Probable seizure Hospital Course: Patient is a 36-year-old female with no known past medical history who has been on the mental health unit for bizarre behavior and acute psychosis. She had a prolonged stay in the mental health unit as her psychosis has been very difficult to stabilize. She did have a fall in the mental health unit where she possibly had a syncopal episode after getting some medications. Neurology was consulted on the mental health unit and patient did have an EEG completed on which showed possible medication side effect. On 01/08 was witnessed having a seizure on the mental health unit. She was therefore transitioned to the medical unit. CT of the head was performed which showed no acute pathology. MRI without significant abnormality. EEG without epileptiform activity. Her NDMAR is pending at time of discharge. I did disucss with neurology and oligoclonla bands on CSF are nonspecific and incongruent with the MRI. She will be transferred back to the MHU. Patient seen and examined at bedside. She states that she was very restless earlier she is feeling better now. He denies any chest pain or shortness of breath. Vital signs reviewed and stable. General: non toxic, no distress, appears at stated age Derm: warm, dry Head: atraumatic, normocephalic, symmetric Eyes: EOMI, no lid lag, anicteric sclera Mouth: no lip lesion, mucus membranes moist Cardiovascular: S1S2 reg, no murmur, positive posterior tibial pulse bilateral, Lungs: CTA bilateral, no rhonchi, no rales , no accessory muscle use Abdominal: soft, nontender to palpation, no guarding, no appreciable organomegaly Ext: no gross muscle atrophy, no edema, no contractures Neuro: Moving all 4 extremities independendently, no conractures, no ridigitis Psych: Awake and alert, oriented to being with DrCayden, 2021, and self, grunting frequently, frequently snores and falls asleep, some involuntary muscle twitching A total of 35 minutes of time were spent preparing this complex discharge summary . Plan - Discharge Summary New Discharge Prescriptions: New Divalproex [Depakote] 500 mg PO BID #60 tab Enoxaparin [Lovenox] 40 mg SQ DAILY #0 each chlorproMAZINE [Thorazine] 50 mg PO QID PRN tab PRN Reason: Agitation Or Acute Psychosis cloZAPine [Clozaril] 150 mg PO HS tab Divalproex [Depakote] 250 mg PO BID #60 tab Discontinued Divalproex [Depakote] 500 mg PO HS 30 Days tablet QUEtiapine [SEROquel] 300 mg PO HS 30 Days tab Discharge Medication List Divalproex [Depakote] 250 mg PO BID #60 tab 01/13/22 [Rx] Divalproex [Depakote] 500 mg PO BID #60 tab 01/13/22 [Rx] Enoxaparin [Lovenox] 40 mg SQ DAILY #0 each 01/13/22 [Rx] chlorproMAZINE [Thorazine] 50 mg PO QID PRN tab 01/13/22 [Rx] cloZAPine [Clozaril] 150 mg PO HS tab 01/13/22 [Rx] Activity/Diet/Wound Care/Special Instructions: Continue with thorazine 25 mg IM [id number] prn psychosis Benadryl 25 mg IM q 6 hours agitation Discharge Disposition: TRANSFER TO PSYCH HOSP/UNIT
[2022-01-13 14:19] LABS: Clozapine (Clozaril) 103 ng/mL (200-700); Norclozapine 37 ng/mL (200-700)
[2022-01-13 14:27] LABS: HCT 36.2 % (34.0-46.0); HGB 12.1 gm/dL (11.4-16.0); MCH 32.8 pg (25.0-35.0); MCHC 33.3 g/dL (31.0-37.0); MCV 98.6 fL (80.0-100.0); Mean Platelet Volume 7.5; Platelet Count 190 k/uL (150-450); RBC 3.68 m/uL (3.80-5.40); RDW 11.4 % (11.5-15.5); WBC 6.6 k/uL (3.8-10.6)
[2022-01-13 14:39] LABS: African American GFR (CKD) >90 (>60 ml/min/1.73 sqM); Anion Gap 8 mmol/L; Blood Urea Nitrogen 9 mg/dL (7-17); Calcium 8.1 mg/dL (8.4-10.2); Carbon Dioxide 22 mmol/L (22-30); Chloride 108 mmol/L (98-107); Glucose 82 mg/dL (74-99); Magnesium 1.8 mg/dL (1.6-2.3); Non-African American GFR(CKD) >90 (>60 ml/min/1.73 sqM); Phosphorus 2.4 mg/dL (2.5-4.5); Potassium 3.9 mmol/L (3.5-5.1); Sodium 138 mmol/L (137-145)
[2022-01-13] MEDS ORDERED: cloZAPine 100 MG TAB PO SCH (21:00)
[2022-01-14] MEDS: SODIUM CHLORIDE 0.9% 1,000 ML IV SCH ×3 (06:08→16:49)
[2022-01-14] MEDS: ENOXAPARIN 40 MG/0.4 ML SYRINGE SQ SCH (09:19)
[2022-01-14] MEDS: VALPROATE SODIUM 750 MG in SODIUM CHLORIDE 0.9% 50 ML IVPB SCH ×2 (09:19→20:43)
[2022-01-14] MEDS: diphenhydrAMINE 50 MG/ML 1 ML VIAL IVP PRN ×2 (09:20→20:44)
[2022-01-14 09:43] LABS: Basophils % (A) 1 %; Eosinophils # (A) 0.1 k/uL (0-0.7); Eosinophils % (A) 1 %; HCT 43.2 % (34.0-46.0); HGB 13.9 gm/dL (11.4-16.0); Lymphocytes % (A) 18 %; MCHC 32.3 g/dL (31.0-37.0); MCV 99.4 fL (80.0-100.0); Mean Platelet Volume 7.7; Monocytes # (A) 0.5 k/uL (0-1.0); Monocytes % (A) 10 %; Neutrophils # (A) 3.5 k/uL (1.3-7.7); Neutrophils % (A) 68 %; Platelet Count 228 k/uL (150-450); RBC 4.35 m/uL (3.80-5.40); RDW 11.6 % (11.5-15.5); WBC 5.2 k/uL (3.8-10.6)
[2022-01-14 12:35] LABS: Glucose,Whole Blood 102 mg/dL (75-99)
--- NOTE | 2022-01-14 14:12 | P.PN ---
Progress Note - Text Progress Note Date: 01/14/22 Interval History: Patient was seen resting in bed with her mother, sister, and boating safety officer at bedside. The patient continues to have intermittent episodes of agitation and confusion. She continues to speak nonsensically at times. As per discussion with the patient's boating safety officer, the patient did not sleep last night. Furthermore, the patient continues to have a decreased appetite. The patient is however alert and oriented to person, place, and time. She does have difficulty with coherently stating what she has been thinking about. She does report that she just wants to "get this over with and get better." She has been adherent with her medications and is not reporting any symptom side effects at this time. Mental Status Exam: General Appearance: Patient appears to be somnolent, but directable and cooperative. Obese body habitus. Behavior: Appears to presenting with elevated psychomotor activity and appears to be grossly restless. Eye contact is fair. Speech: Spontaneous, slurred, low in volume. Nonsensical at times. Mood/Affect: Mood is "just want to get this over with." Affect is malaise and somewhat irritable. Suicidality/Homicidality: Denies Perceptions: Denies AH or VH Though content/process: Patient appears to be grossly disorganized. Memory and concentration: AAOx4. Judgment and insight: Fair Vital Signs Temp 97.6 F 01/14/22 04:15 Pulse 95 01/14/22 12:00 Resp 16 01/14/22 12:00 BP 126/78 01/14/22 12:00 Pulse Ox 95 01/14/22 12:00 FiO2 Intake & Output 01/13/22 01/14/22 01/14/22 18:59 06:59 18:59 Intake Total 59 Output Total 1200 Balance -1200 59 Weight 91 kg Intake: Oral 59 Output: Urine 1200 Uretheral (Gavin) 900 Other: Voiding Method Indwelling Catheter Diaper Diaper # Voids 1 1 Laboratory Results - Last 24 Hours 01/12/22 01/13/22 01/13/22 12:41 13:55 13:55 WBC 6.6 RBC 3.68 L Hgb 12.1 Hct 36.2 MCV 98.6 MCH 32.8 MCHC 33.3 RDW 11.4 L Plt Count 190 MPV 7.5 Neutrophils % Lymphocytes % Monocytes % Eosinophils % Basophils % Neutrophils # Lymphocytes # Monocytes # Eosinophils # Basophils # Sodium 138 Potassium 3.9 Chloride 108 H Carbon Dioxide 22 Anion Gap 8 BUN 9 Creatinine 0.54 Est GFR (CKD-EPI)AfAm >90 Est GFR (CKD-EPI)NonAf >90 Glucose 82 POC Glucose (mg/dL) POC Glu Truck Unloader ID Calcium 8.1 L Phosphorus 2.4 L Magnesium 1.8 Clozapine 103 L Norclozapine 37 L Coronavirus (PCR) 01/13/22 01/14/22 01/14/22 18:06 08:36 12:33 WBC 5.2 RBC 4.35 Hgb 13.9 Hct 43.2 MCV 99.4 MCH 32.0 MCHC 32.3 RDW 11.6 Plt Count 228 MPV 7.7 Neutrophils % 68 Lymphocytes % 18 Monocytes % 10 Eosinophils % 1 Basophils % 1 Neutrophils # 3.5 Lymphocytes # 1.0 Monocytes # 0.5 Eosinophils # 0.1 Basophils # 0.0 Sodium Potassium Chloride Carbon Dioxide Anion Gap BUN Creatinine Est GFR (CKD-EPI)AfAm Est GFR (CKD-EPI)NonAf Glucose POC Glucose (mg/dL) 102 H POC Glu Truck Unloader ID Dasha Chambers Calcium Phosphorus Magnesium Clozapine Norclozapine Coronavirus (PCR) Not Detected Assessment Acute psychosis - given the timeline of symptoms, a diagnosis of schizophrenia cannot be made yet. The patient has had no previous history of osiel or bipolar symptoms and despite presenting with intermittent episodes of agitation and has had no previous history of overt manic symptoms lasting a week. 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 Literature has shown that patients with a history of Covid 19 infection have been displaying new onset psychosis that appears to be very severe and treatment resistant. Likely, the patient would benefit from ECT as antipsychotic medications have not displayed any significant improvement as the patient continues to have irregular sleep. We will continue to titrate Clozaril in the meantime. We are also evaluating for possible NMDA receptor encephalitis. Awaiting NMDAR IgG results. Nicotine dependence Plan: -Patient DOES meet criteria for inpatient psychiatric hospitalization. When medically stable, transfer to the psychiatric unit. We will continue to pursue transfer to a facility that can perform ECT. Due to medical complications (catheter, level of care, etc), admission to the psychiatric unit is held. We will continue to follow as she is admitted on the medical floor. -Patient continues to meet criteria for inpatient psychiatric admission for symptom stabilization and safety. The patient is currently court ordered for psychiatric treatment. Recommend that the patient is transferred to a facility that can utilize Electroconvulsive therapy. Plan discussed with the patient's case hardener. Awaiting ECT placement. -Patient has capacity for medical decision making. Electroconvulsive therapy was discussed with the patient including the risks, benefits, and treatment alternatives. Patient is able to acknowledge what is said to her and is agreeable in pursuing ECT treatment. -Medications: Increase Clozaril to 175 mg by mouth at bedtime for psychosis Continue Depakote 750 mg IV twice a day for mood stabilization/seizure - Consider taper if concern for somnolence. -When necessary Thorazine and Benadryl for agitation/aggression. -Psychiatry will continue to follow.
--- NOTE | 2022-01-14 15:33 | P.PN ---
Subjective Progress Note Date: 01/14/22 (delayed charting seen at 0930) Principal diagnosis: seizure Patient is a 36-year-old female with no known past medical history who has been on the mental health unit for bizarre behavior and acute psychosis. She had a prolonged stay in the mental health unit as her psychosis has been very difficult to stabilize. She did have a fall in the mental health unit where she possibly had a syncopal episode after getting some medications. Neurology was consulted on the mental health unit and patient did have an EEG completed on which showed possible medication side effect. On 01/08 was witnessed having a seizure on the mental health unit. She was therefore transitioned to the medical unit. CT of the head was performed which showed no acute pathology. MRI without significant abnormality. EEG without epileptiform activity. I did discuss with neurology and oligoclonal bands on CSF are nonspecific and incongruent with the MRI. She was cleared to transfer back to MHU. Patient seen and examined at bedside. Initially patient was flailing in bed and unresponsive. I then was able to focus her and she was able to tell me that she is not having any pain that is 2021 that she is [facility] that she remembers me from yesterday and that she would like a Mountain Dew when I told her we didn't have the she asked for a Pepsi. General: non toxic, no distress, appears at stated age Derm: warm, diaphoretic Head: atraumatic, normocephalic, symmetric Eyes: Myotic pupils, equal round reactive to light EOMI, no lid lag, anicteric sclera Mouth: no lip lesion, mucus membranes moist Cardiovascular: S1S2 tachycardiac, no murmur, positive posterior tibial pulse bilateral, Lungs: CTA bilateral, no rhonchi, no rales , no accessory muscle use Abdominal: sort, NTTP, no organomegally appreciated Ext: no gross muscle atrophy, no edema, no contractures Neuro: Moving all 4 extremities independently with no acute deficits noted Psych: Somnolent, opens eyes and attempts to verbalize when stimulated verbally or tactilely. She is not answering questions at this time. Assessment/plan: Acute seizure Acute psychosis -Neurology and psychiatry recs -LP negative for meningitis, I did discuss with neurology and oligoclonal bands on CSF are nonspecific and incongruent with the MRI. -MRI brain without acute pathology, seizure precautions, continue with depakote, EEG without epileptiform activity -Continue with director of public safety -Urine drug screen was negative on admission -MOHAMUD negative, Covid test negative, VDRL negative -Folate, homocystine, TSH, vitamin B12 all within normal limits - NDMA receptor testing pending Non-anion gap metabolic acidosis, resolved Medically optimized for discharge, no metabolic/neurologic/medical cause found to account for patients current pyschosis. D/W Dr. Cobb currently the mental health unit is unable to accommodate this patient per day at nursing and management staff as for her acuity and has requested that the NDMA a receptor testing be available prior to transfer. Dr. Galo Watts to call lab and should be available tomorrow. DVT prophylaxis: Heparin Discussed with:patient Anticipated discharge: in AM Anticipated discharge place: MHU A total of 35 minutes was spent on the care of this complex patient more than 50% of the time was spent in counseling and care coordination. Active Medications Generic Name Dose Route Start Last Admin Trade Name Freq PRN Reason Stop Dose Admin Acetaminophen 650 mg 01/08/22 21:57 Acetaminophen Tab 325 Mg Tab PO Q6HR PRN Mild Pain or Fever > 100.5 Chlorpromazine HCl 50 mg 01/09/22 01:47 01/09/22 23:38 Chlorpromazine 25 Mg Tab PO 50 mg QID PRN Administration Agitation or Acute Psychosis Chlorpromazine HCl 25 mg 01/09/22 01:47 01/13/22 08:44 Chlorpromazine 25 Mg/Ml 2 Ml Amp IM 25 mg Q6HR PRN Administration Agitation or Acute Psychosis Clozapine 100 mg 01/14/22 21:00 Clozapine 100 Mg Tab PO 01/21/22 23:00 HS SABRINA Clozapine 75 mg 01/14/22 21:00 Clozapine 25 Mg Tab PO 01/21/22 23:00 HS SABRINA Diphenhydramine HCl 25 mg 01/09/22 15:24 01/14/22 09:20 Diphenhydramine 50 Mg/Ml 1 Ml Vial IVP 25 mg Q6HR PRN Administration Agitation Enoxaparin Sodium 40 mg 01/09/22 09:00 01/14/22 09:19 Enoxaparin 40 Mg/0.4 Ml Syringe SQ 40 mg DAILY SABRINA Administration Sodium Chloride 1,000 mls @ 150 mls/hr 01/08/22 22:00 01/14/22 09:09 Saline 0.9% IV Not Given .[id number] SABRINA Valproic Acid 750 mg/ Sodium 57.5 mls @ 50 mls/hr 01/10/22 22:30 01/14/22 09:19 Chloride IVPB 50 mls/hr BID SABRINA Administration Lorazepam 0.5 mg 01/09/22 10:18 Lorazepam 2 Mg/Ml Inj IV Q6HR PRN Seizures Naloxone HCl 0.2 mg 01/08/22 21:57 Naloxone 0.4 Mg/Ml 1 Ml Vial IV Q2M PRN Opioid Reversal Objective - Vital Signs Vital signs: Vital Signs Temp 97.6 F 01/14/22 04:15 Pulse 95 01/14/22 12:00 Resp 16 01/14/22 12:00 BP 126/78 01/14/22 12:00 Pulse Ox 95 01/14/22 12:00 FiO2 Intake & Output 01/13/22 01/14/22 01/14/22 18:59 06:59 18:59 Intake Total 59 Output Total 1200 Balance -1200 59 Weight 91 kg Intake: Oral 59 Output: Urine 1200 Uretheral (Gavin) 900 Other: Voiding Method Indwelling Catheter Diaper Diaper # Voids 1 1 - Labs CBC & Chem 7: 01/14/22 08:36 01/13/22 13:55 Labs: Abnormal Lab Results - Last 24 Hours (Table) 01/14/22 Range/Units 12:33 POC Glucose (mg/dL) 102 H (75-99) mg/dL Microbiology - Last 24 Hours (Table) 01/10/22 20:10 CSF Gram Stain - Preliminary Cerebral Spinal Fluid CSF Culture - Preliminary
[2022-01-14] MEDS: cloZAPine 100 MG TAB PO SCH (20:43)
[2022-01-14] MEDS: cloZAPine 25 MG TAB PO SCH (20:43)
[2022-01-15] MEDS: SODIUM CHLORIDE 0.9% 1,000 ML IV SCH ×2 (01:04→21:09)
[2022-01-15] MEDS: diphenhydrAMINE 50 MG/ML 1 ML VIAL IVP PRN (01:52)
[2022-01-15] MEDS: ENOXAPARIN 40 MG/0.4 ML SYRINGE SQ SCH (09:23)
[2022-01-15] MEDS: VALPROATE SODIUM 750 MG in SODIUM CHLORIDE 0.9% 50 ML IVPB SCH ×2 (09:23→21:10)
[2022-01-15] MEDS ORDERED: diphenhydrAMINE 50 MG/ML 1 ML VIAL ONE (12:15)
[2022-01-15 14:50] LABS: Glucose,Whole Blood 120 mg/dL (75-99)
--- NOTE | 2022-01-15 14:58 | P.PN ---
Progress Note - Text Progress Note Date: 01/15/22 Interval History: Patient was seen resting in bed.. Currently, the patient continues to respond to some internal stimuli. She appears to visually hallucinate. 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 She is unable to participate fully in the psychiatric interview. She has been noted by staff to not have slept well. She has intermittent episodes of agitation. Furthermore, the patient has not urinated today. She has poor appetite as well. NMDAR antibody testing is pending. Mental Status Exam: General Appearance: Patient appears to be somnolent, difficult to direct, but attempts to cooperate. Obese body habitus. Behavior: Appears to presenting with elevated psychomotor activity and appears to be grossly restless. Eye contact is fair. Patient appears to be responding to some internal stimuli and is acting out movements with her hands. Speech: Spontaneous, slurred, low in volume. Nonsensical at times. Mood/Affect: Mood is "okay" Affect is malaised and somewhat irritable. Suicidality/Homicidality: Denies Perceptions: Denies AH or VH Though content/process: Patient appears to be grossly disorganized. Memory and concentration: Unable to assess at this time. Judgment and insight: Fair Vital Signs Temp 98.9 F 01/14/22 20:00 Pulse 104 H 01/15/22 12:00 Resp 16 01/15/22 12:00 BP 121/76 01/15/22 12:00 Pulse Ox 94 L 01/15/22 12:00 FiO2 Intake & Output 01/14/22 01/15/22 01/15/22 18:59 06:59 18:59 Intake Total 59 360 Balance 59 360 Weight 91 kg Intake: Oral 59 360 Other: Voiding Method Diaper Diaper Diaper # Voids 1 2 Assessment Acute psychosis - given the timeline of symptoms, a diagnosis of schizophrenia cannot be made yet. The patient has had no previous history of osiel or bipolar symptoms and despite presenting with intermittent episodes of agitation and has had no previous history of overt manic symptoms lasting a week. 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 Literature has shown that patients with a history of Covid 19 infection have been displaying new onset psychosis that appears to be very severe and treatment resistant. Likely, the patient would benefit from ECT as antipsychotic medications have not displayed any significant improvement as the patient continues to have irregular sleep. We will continue to titrate Clozaril in the meantime. We are also evaluating for possible NMDA receptor encephalitis. Awaiting NMDAR IgG results. As per discussion with lab, we expect results within the next 24 hours. Nicotine dependence Plan: -Patient DOES meet criteria for inpatient psychiatric hospitalization. When medically stable, transfer to the psychiatric unit. We will continue to pursue transfer to a facility that can perform ECT. Due to medical complications (cat heter, level of care, etc), admission to the psychiatric unit is held. We will continue to follow as she is admitted on the medical floor. -Patient continues to meet criteria for inpatient psychiatric admission for symptom stabilization and safety. The patient is currently court ordered for psychiatric treatment. Recommend that the patient is transferred to a facility that can utilize Electroconvulsive therapy. Plan discussed with the patient's patient case coordinator. Awaiting ECT placement. -Patient has capacity for medical decision making. Electroconvulsive therapy was discussed with the patient including the risks, benefits, and treatment alternatives. Patient is able to acknowledge what is said to her and is agreeable in pursuing ECT treatment. -Medications: Continue Clozaril 175 mg by mouth at bedtime for psychosis Continue Depakote 750 mg IV twice a day for mood stabilization/seizure - Consider taper if concern for somnolence. -When necessary Thorazine and Benadryl for agitation/aggression. -Psychiatry will continue to follow.
--- NOTE | 2022-01-15 15:40 | P.PN ---
Subjective Progress Note Date: 01/15/22 (delayed charting seen at bedside) Principal diagnosis: seizure Patient is a 36-year-old female with no known past medical history who has been on the mental health unit for bizarre behavior and acute psychosis. She had a prolonged stay in the mental health unit as her psychosis has been very difficult to stabilize. She did have a fall in the mental health unit where she possibly had a syncopal episode after getting some medications. Neurology was consulted on the mental health unit and patient did have an EEG completed on which showed possible medication side effect. On 01/08 was witnessed having a seizure on the mental health unit. She was therefore transitioned to the medical unit. CT of the head was performed which showed no acute pathology. MRI without significant abnormality. EEG without epileptiform activity. I did discuss with neurology and oligoclonal bands on CSF are nonspecific and incongruent with the MRI. She was cleared to transfer back to MHU. Patient seen and examined at bedside. She is awake and stuttering. She denies chest pain, SOB, nausea, and vomiting. General: non toxic, no distress, appears at stated age Derm: warm, diaphoretic Head: atraumatic, normocephalic, symmetric Eyes: EOMI, no lid lag, anicteric sclera Mouth: no lip lesion, mucus membranes moist Cardiovascular: S1S2 tachycardiac, no murmur, positive posterior tibial pulse bilateral, Lungs: CTA bilateral, no rhonchi, no rales , no accessory muscle use Abdominal: sort, NTTP, no organomegally appreciated Ext: no gross muscle atrophy, no edema, no contractures Neuro: Moving all 4 extremities Psych: Alert awake Oriented to self and place Assessment/plan: Acute seizure Acute psychosis -Neurology and psychiatry recs -LP negative for meningitis, I did discuss with neurology and oligoclonal bands on CSF are nonspecific and incongruent with the MRI. -MRI brain without acute pathology, seizure precautions, continue with depakote, EEG without epileptiform activity -Continue with health safety manager -Urine drug screen was negative on admission -MOHAMUD negative, Covid test negative, VDRL negative -Folate, homocystine, TSH, vitamin B12 all within normal limits - NDMA receptor testing pending Non-anion gap metabolic acidosis, resolved Medically optimized for discharge, no metabolic/neurologic/medical cause found to account for patients current pyschosis. D/W Dr. Cobb currently the mental health unit is unable to accommodate this patient per day at nursing and management staff as for her acuity and has requested that the NDMA a receptor testing be available prior to transfer. DVT prophylaxis: Heparin Discussed with:patient Anticipated discharge: once labs available Anticipated discharge place: MHU A total of 35 minutes was spent on the care of this complex patient more than 50% of the time was spent in counseling and care coordination. Objective - Vital Signs Vital signs: Vital Signs Temp 98.9 F 01/14/22 20:00 Pulse 104 H 01/15/22 12:00 Resp 16 01/15/22 12:00 BP 121/76 01/15/22 12:00 Pulse Ox 94 L 01/15/22 12:00 FiO2 Intake & Output 01/14/22 01/15/22 01/15/22 18:59 06:59 18:59 Intake Total 59 360 Balance 59 360 Weight 91 kg Intake: Oral 59 360 Other: Voiding Method Diaper Diaper Diaper # Voids 1 2 - Labs CBC & Chem 7: 01/14/22 08:36 01/13/22 13:55 Labs: Abnormal Lab Results - Last 24 Hours (Table) 01/15/22 Range/Units 11:44 POC Glucose (mg/dL) 120 H (75-99) mg/dL Microbiology - Last 24 Hours (Table) 01/10/22 20:10 CSF Gram Stain - Final Cerebral Spinal Fluid CSF Culture - Final
[2022-01-15] MEDS: cloZAPine 100 MG TAB PO SCH (21:09)
[2022-01-15] MEDS: cloZAPine 25 MG TAB PO SCH (21:09)
[2022-01-16 00:30] VITALS: RESP 18
[2022-01-16] MEDS: diphenhydrAMINE 50 MG/ML 1 ML VIAL IVP PRN ×2 (02:12→16:45)
[2022-01-16] MEDS: SODIUM CHLORIDE 0.9% 1,000 ML IV SCH ×3 (04:28→23:14)
[2022-01-16] MEDS: chlorproMAZINE 25 MG/ML 2 ML AMP IM PRN (04:37)
[2022-01-16] MEDS: ENOXAPARIN 40 MG/0.4 ML SYRINGE SQ SCH (10:23)
[2022-01-16] MEDS: VALPROATE SODIUM 750 MG in SODIUM CHLORIDE 0.9% 50 ML IVPB SCH ×2 (10:23→23:13)
--- NOTE | 2022-01-16 13:25 | P.PN ---
Subjective Progress Note Date: 01/16/22 Principal diagnosis: Seizure Patient is a 36-year-old female with no known past medical history who has been on the mental health unit for bizarre behavior and acute psychosis. She had a prolonged stay in the mental health unit as her psychosis has been very difficult to stabilize. She did have a fall in the mental health unit where she possibly had a syncopal episode after getting some medications. Neurology was consulted on the mental health unit and patient did have an EEG completed on which showed possible medication side effect. On 01/08 was witnessed having a s eizucristel on the mental health unit. She was therefore transitioned to the medical unit. CT of the head was performed which showed no acute pathology. MRI without significant abnormality. EEG without epileptiform activity. Per neurology, oligoclonal bands on CSF are nonspecific. She was cleared to transfer back to mental health unit. NMDA receptor antibody titers were detected. Patient will need transfer to a facility with plasmapheresis capabilities and will likely require PET scan. Discussed with case management and we will initiate the transfer process. Patient denies chest pain, shortness of breath, nausea, vomiting or fever. Objective - Vital Signs Vital signs: Vital Signs Temp 97.6 F 01/16/22 08:00 Pulse 107 H 01/16/22 08:00 Resp 18 01/16/22 08:00 BP 133/71 01/16/22 08:00 Pulse Ox 100 01/16/22 08:00 FiO2 Intake & Output 01/15/22 01/16/22 01/16/22 18:59 06:59 18:59 Intake Total 600 50 472 Balance 600 50 472 Weight 91 kg Intake: Intake, IV Titration 50 Amount Valproate Sodium 750 mg 50 In Sodium Chloride 0.9% 50 ml @ 50 mls/hr IVPB BID [facility] Rx#:[id number] Oral 600 472 Other: Voiding Method Diaper # Voids 1 1 3 # Bowel Movements 0 - Exam Constitutional: Awake, in no acute distress HEENT: Pupils equally reactive to light, atraumatic, normocephalic. Lungs: Clear to auscultation bilaterally, no wheezing, no crackles Cardiovascular: Sinus tachycardia, S1-S2 normal, no murmur, no peripheral edema Abdominal: Soft, nontender, no guarding, rebound or rigidity Extremities: No cyanosis or clubbing Neuro: Awake and alert, oriented to self - Labs CBC & Chem 7: 01/14/22 08:36 01/13/22 13:55 Labs: Abnormal Lab Results - Last 24 Hours (Table) 01/15/22 Range/Units 11:44 POC Glucose (mg/dL) 120 H (75-99) mg/dL Assessment and Plan Assessment: Acute seizure Acute psychosis NMDA receptor encephalopathy Neurology and psychiatry following LP negative for meningitis. MRI brain negative for acute intracranial pathology. Seizure precautions. EEG without epileptiform activity. Continue valproic acid. Continue safety intern UDS negative on admission In negative, CLOtest negative, VDRL negative, folate and homocysteine TSH nitin min B12 all WNL Patient will need transfer to tertiary care facility for plasmapheresis. Discussed with CM, we will initiate transfer process.
--- NOTE | 2022-01-16 13:49 | P.PN ---
Progress Note - Text Progress Note Date: 01/16/22 Interval History: Patient was seen resting in bed, and present present at bedside is the patient's family. The patient did test positive for the presence of NMDA receptor antibodies and her serum. This is indicative of anti-NMDA receptor encephalitis. Currently, the patient presents as grossly unchanged. She displays elevated psychomotor activity, restlessness, and is unable to appropriately respond to questioning. She willl have episodes of coherent speech followed by slurred and incoherent words. As per discussion with the patient's nurse consider, she continues to have difficulty with sleep. Mental Status Exam: Grossly unchanged from yesterday. General Appearance: Patient appears to be somnolent, difficult to direct, but is not cooperative today. Obese body habitus. Behavior: Appears to presenting with elevated psychomotor activity and appears to be grossly restless. Eye contact is fair. Patient appears to be responding to some internal stimuli and is acting out movements with her hands. Speech: Spontaneous, slurred, low in volume. Nonsensical at times. Mood/Affect: Mood is "Cannot be assessed" Affect is malaised and somewhat irritable. Suicidality/Homicidality: Denies Perceptions: Denies AH or VH Though content/process: Patient appears to be grossly disorganized. Memory and concentration: Grossly poor. Judgment and insight: Poor Vital Signs Temp 97.6 F 01/16/22 08:00 Pulse 107 H 01/16/22 08:00 Resp 18 01/16/22 08:00 BP 133/71 01/16/22 08:00 Pulse Ox 100 01/16/22 08:00 FiO2 Intake & Output 01/15/22 01/16/22 01/16/22 18:59 06:59 18:59 Intake Total 600 50 472 Balance 600 50 472 Weight 91 kg Intake: Intake, IV Titration 50 Amount Valproate Sodium 750 mg 50 In Sodium Chloride 0.9% 50 ml @ 50 mls/hr IVPB BID [facility] Rx#:[id number] Oral 600 472 Other: Voiding Method Diaper # Voids 1 1 3 # Bowel Movements 0 Laboratory Results - Last 24 Hours 01/15/22 11:44 POC Glucose (mg/dL) 120 H POC Glu Sealer Sander ID Belinda Chiu PLEASE SEE LAB REPORT FROM [facility] FOR REPORT ON PRESENCE OF ANTI NMDA RECEPTOR ANTIBODIES Assessment Anti-NMDA receptor encephalitis - Anti-NMDA receptor antibodies were found in the patient's serum. Furthermore, the patient has had a very thorough workup will MOHAMUD, RPR, TSH, B12, folate, ammonia along with diagnostic studies of MRI, EEG, and CSF examination. Plan: -Patient will require transfer to a tertiary facility for plasmapheresis and likely a PET scan. As per discussion with the patient's mother, there is a family history of ovarian cancer. -Medications: We will discontinue Clozaril as antipsychotic medications are not indicated for the management of anti-NMDA receptor encephalitis. Continue Depakote 750 mg IV twice a day for mood stabilization/seizure -When necessary Thorazine and Benadryl for agitation/aggression. -Psychiatry will continue to follow loosely at this time. Please contact us with any questions or concerns.
[2022-01-16] MEDS ORDERED: ACETAMINOPHEN IV (For NPO) 1,000 MG in EMPTY BAG 1 BAG IVPB ONE (18:00)
[2022-01-17 00:11] VITALS: BP 117/78; PULSE 97; TEMP 98.6
--- NOTE | 2022-01-17 15:52 | P.DS ---
Providers Date of admission: 01/10/22 07:22 Attending physician: Lien Gu MD Consults: 01/08/22 21:58 Consult Physician Routine Consulting Provider: Yuriy Rosa Consult Reason/Comments: known Do you want consulting provider notified?: Yes 01/08/22 21:59 Consult Physician Routine Consulting Provider: Judith Reeves Consult Reason/Comments: seizure Do you want consulting provider notified?: Yes 01/09/22 12:32 Consult to Anesthesia Stat Consulting Provider: Tanmay Santos Consult Reason/Comments: Lumbar puncture whenever available; AMS, rule out encephalitis 01/10/22 16:05 Consult to Anesthesia Stat Consulting Provider: Anesthesia,Services Consult Reason/Comments: Lumbar puncture, rule out encephalitis Primary care physician: Stated None Hospital Course: Patient is a 36-year-old female with no known past medical history who has been on the mental health unit for bizarre behavior and acute psychosis. She had a prolonged stay in the mental health unit as her psychosis has been very difficult to stabilize. She did have a fall in the mental health unit where she possibly had a syncopal episode after getting some medications. Neurology was consulted on the mental health unit and patient did have an EEG completed on which showed possible medication side effect. On 01/08 was witnessed having a seizure on the mental health unit. She was therefore transitioned to the medical unit. CT of the head was performed which showed no acute pathology. MRI without significant abnormality. EEG without epileptiform activity. Patient was found to have positive anti-NMDA receptor antibodies. Patient was transferred to [facility] for plasmapheresis and likely PET scan. Patient was transferred overnight to [facility] 01/17/2022 1:35 AM Plan - Discharge Summary New Discharge Prescriptions: New Divalproex [Depakote] 500 mg PO BID #60 tab Enoxaparin [Lovenox] 40 mg SQ DAILY #0 each chlorproMAZINE [Thorazine] 50 mg PO QID PRN tab PRN Reason: Agitation Or Acute Psychosis cloZAPine [Clozaril] 150 mg PO HS tab Divalproex [Depakote] 250 mg PO BID #60 tab Discontinued Divalproex [Depakote] 500 mg PO HS 30 Days tablet QUEtiapine [SEROquel] 300 mg PO HS 30 Days tab Discharge Medication List Divalproex [Depakote] 250 mg PO BID #60 tab 01/13/22 [Rx] Divalproex [Depakote] 500 mg PO BID #60 tab 01/13/22 [Rx] Enoxaparin [Lovenox] 40 mg SQ DAILY #0 each 01/13/22 [Rx] chlorproMAZINE [Thorazine] 50 mg PO QID PRN tab 01/13/22 [Rx] cloZAPine [Clozaril] 150 mg PO HS tab 01/13/22 [Rx] Activity/Diet/Wound Care/Special Instructions: Continue with thorazine 25 mg IM [id number] prn psychosis Benadryl 25 mg IM q 6 hours agitation Discharge Disposition: TRANSFER TO PSYCH HOSP/UNIT
== END 2022-01-17 01:50 | disposition short-term general hospital (02) | DRG 100 ==
LOC: INTOOBSV 20:55 → 3SCARD 20:55 → OBSVTOIN 01-10 07:22
PROVIDERS: ADMIT Internal Medicine; ATTEND Internal Medicine
PROC: 009U3ZX Drainage of Spinal Canal, Percutaneous Approach, Diagnostic (ICD-10-PCS; principal; 2022-01-10)
DX: G40.909 Epilepsy, unspecified, not intractable, without status epilepticus (principal); G93.41 Metabolic encephalopathy; E87.2 Acidosis; F23 Brief psychotic disorder; E66.9 Obesity, unspecified; F17.210 Nicotine dependence, cigarettes, uncomplicated; R45.1 Restlessness and agitation; Z20.822 Contact with and (suspected) exposure to COVID-19; Z68.34 Body mass index [BMI] 34.0-34.9, adult; Z79.899 Other long term (current) drug therapy; Z86.16 Personal history of COVID-19; Z98.890 Other specified postprocedural states; Z28.21 Immunization not carried out because of patient refusal; Z81.8 Family history of other mental and behavioral disorders; Z88.1 Allergy status to other antibiotic agents; Z88.0 Allergy status to penicillin; Z91.018 Allergy to other foods
CPT/HCPCS: 70551; 80048; 80053; 80159; 82040; 82042; 82140; 82550; 82784; 82945; 83735; 83873; 83916; 84100; 84157; 85025; 85027; 85610; 86780; 87070; 87205; 87252; 87496; 87498; 87529; 87635; 87798; 89050; 95816